=== PATIENT | male | born 1985 | race Caucasian/White ===

== ENCOUNTER → 2017-09-05 | Outpatient (CLI) | payer OTHER ==
[2017-09-05 11:50] LABS: ALT 48 U/L (21-72); AST 28 U/L (17-59); Albumin 4.6 g/dL (3.5-5.0); Alkaline Phosphatase 65 U/L (38-126); Anion Gap 12 mmol/L; Blood Urea Nitrogen 12 mg/dL (9-20); Calcium 10.3 mg/dL (8.4-10.2); Carbon Dioxide 29 mmol/L (22-30); Chloride 103 mmol/L (98-107); Glucose 94 mg/dL (74-99); Potassium 4.4 mmol/L (3.5-5.1); Sodium 144 mmol/L (137-145); Total Bilirubin 0.3 mg/dL (0.2-1.3); Total Protein 8.3 g/dL (6.3-8.2)
[2017-09-05 18:11] LABS: HIV AB P24 Non-Reactive (Non-Reactive); HIV P24 AG Non-Reactive (Non-Reactive)
[2017-09-05 18:31] LABS: Hepatitis A Antibody IgM Non-Reactive (Non-Reactive); Hepatitis B Core IgM Non-Reactive (Non-Reactive)
== END | disposition home or self-care (01) ==
LOC: LABWHC1 10:53
PROVIDERS: ATTEND Family Medicine
DX: Z20.5 Contact with and (suspected) exposure to viral hepatitis (principal); Z20.6 Contact with and (suspected) exposure to human immunodeficiency virus [HIV]; Z79.899 Other long term (current) drug therapy
CPT/HCPCS: 36415; 80053; 80074; 87390

== ENCOUNTER 2017-10-27 09:53 | Emergency (ER) | payer OTHER ==
[2017-10-27 09:56] VITALS: BP 160/100; PULSE 78; RESP 18; TEMP 98.1
--- NOTE | 2017-10-27 10:12 | ED ---
Overdose HPI - General Chief Complaint: Overdose Stated Complaint: Overdose Time Seen by Provider: 10/27/17 09:53 Source: patient, EMS, RN notes reviewed Mode of arrival: EMS Limitations: no limitations - History of Present Illness Initial Comments: This is a 32-year-old male presents emergency Department via EMS and police for heroin overdose. Patient was given 0.04 mg of Narcan. Patient has no point at this time. Patient is awake alert and orientated 3. Patient has a long- standing history of marijuana abuse. Patient explained to go to rehab next week. Patient is not suicidal or homicidal. He denies any physical complaints. - Related Data Home Medications Medication Instructions Recorded Confirmed No Known Home Medications [No 11/11/13 10/09/15 Known Home Medications] Allergies Allergy/AdvReac Type Severity Reaction Status Date / Time No Known Allergies Allergy Verified 10/27/17 09:56 Review of Systems ROS Statement: Those systems with pertinent positive or pertinent negative responses have been documented in the HPI. ROS Other: All systems not noted in ROS Statement are negative. Past Medical History Past Medical History: Sleep Apnea/CPAP/BIPAP History of Any Multi-Drug Resistant Organisms: None Reported Past Surgical History: Hernia Repair, Orthopedic Surgery Additional Past Surgical History / Comment(s): Left leg sx numerous r shoulder Past Psychological History: No Psychological Hx Reported Smoking Status: Current every day smoker Past Alcohol Use History: Occasional Past Drug Use History: Heroin, Marijuana General Exam Limitations: no limitations General appearance: alert, in no apparent distress Head exam: Present: atraumatic, normocephalic, normal inspection Eye exam: Present: normal appearance, PERRL, EOMI. Absent: scleral icterus, conjunctival injection, periorbital swelling ENT exam: Present: normal exam, normal oropharynx, mucous membranes moist Neck exam: Present: normal inspection, full ROM. Absent: tenderness, meningismus, lymphadenopathy Respiratory exam: Present: normal lung sounds bilaterally. Absent: respiratory distress, wheezes, rales, rhonchi, stridor Cardiovascular Exam: Present: regular rate, normal rhythm, normal heart sounds. Absent: systolic murmur, diastolic murmur, rubs, gallop, clicks Neurological exam: Present: alert, oriented X3, CN II-XII intact, normal gait, reflexes normal. Absent: motor sensory deficit Psychiatric exam: Present: normal affect, normal mood. Absent: homicidal ideation, suicidal ideation Skin exam: Present: warm, dry, intact, normal color. Absent: rash Course Vital Signs 10/27/17 09:54 Temperature 98.1 F Pulse Rate 78 Respiratory 18 Rate Blood Pressure 160/100 O2 Sat by Pulse 99 Oximetry Medical Decision Making - Medical Decision Making 32-year-old male presents from for heroin overdose. Patient was given 0.4 mg Narcan. Patient been awake alert and orientated for over an hour. Patient has no complaints. Patient is not suicidal or homicidal. Patient is not in police custody. Patient will be discharged. Disposition Clinical Impression: Heroin overdose Disposition: ADMITTED IP TO THIS HOSP Condition: Stable Instructions: Narcotic Abuse (ED) Additional Instructions: Please return to the Emergency Department if symptoms worsen or any other concerns. Is patient prescribed a controlled substance at d/c from ED?: No Referrals: None,Stated [Primary Care Provider] - 1-2 days Time of Disposition: 10:12
== END 2017-10-27 10:18 | disposition other institution (70) ==
LOC: EC 09:53
DX: T40.1X1A Poisoning by heroin, accidental (unintentional), initial encounter (principal); F17.200 Nicotine dependence, unspecified, uncomplicated; G47.30 Sleep apnea, unspecified; Z99.89 Dependence on other enabling machines and devices
CPT/HCPCS: 99284

== ENCOUNTER 2017-11-18 20:39 | Emergency (ER) | payer OTHER ==
[2017-11-18 20:55] VITALS: RESP 18; TEMP 98.1
--- NOTE | 2017-11-18 21:01 | ED ---
Overdose HPI - General Chief Complaint: Overdose Stated Complaint: Overdose Time Seen by Provider: 11/18/17 20:47 Source: EMS, RN notes reviewed, old records reviewed Mode of arrival: EMS Limitations: no limitations - History of Present Illness Initial Comments: 32-year-old male presents after heroin overdose. Patient reports that he was unconscious and EMS was called. Apparently Patient was aroused before EMS was there. No Narcan administered. He states that he feels well this time. Denies any suicidal thoughts. Patient reports that he has been to rehab facilities. Denies actively searching for treatment. - Related Data Home Medications Medication Instructions Recorded Confirmed Buprenorphine HCl/Naloxone HCl 1 each SL BID 11/18/17 11/18/17 [Suboxone 8 mg-2 mg Sl Film] Lisinopril [Zestril] 10 mg PO DAILY 11/18/17 11/18/17 Allergies Allergy/AdvReac Type Severity Reaction Status Date / Time No Known Allergies Allergy Verified 11/18/17 20:55 Review of Systems ROS Statement: Those systems with pertinent positive or pertinent negative responses have been documented in the HPI. ROS Other: All systems not noted in ROS Statement are negative. Past Medical History Past Medical History: Hypertension, Sleep Apnea/CPAP/BIPAP Additional Past Medical History / Comment(s): addiction History of Any Multi-Drug Resistant Organisms: None Reported Past Surgical History: Hernia Repair, Orthopedic Surgery Additional Past Surgical History / Comment(s): Left leg sx numerous r shoulder , Past Psychological History: No Psychological Hx Reported, Depression Smoking Status: Current every day smoker Past Alcohol Use History: Occasional Past Drug Use History: Heroin, Marijuana General Exam - General Exam Comments Initial Comments: 32-year-old male. Alert and oriented. No acute distress. Limitations: no limitations General appearance: alert, in no apparent distress Head exam: Present: atraumatic, normocephalic, normal inspection Eye exam: Present: normal appearance, PERRL, EOMI. Absent: scleral icterus, conjunctival injection, periorbital swelling ENT exam: Present: normal exam, mucous membranes moist Neck exam: Present: normal inspection. Absent: tenderness, meningismus, lymphadenopathy Respiratory exam: Present: normal lung sounds bilaterally. Absent: respiratory distress, wheezes, rales, rhonchi, stridor Cardiovascular Exam: Present: regular rate, normal rhythm, normal heart sounds. Absent: systolic murmur, diastolic murmur, rubs, gallop, clicks GI/Abdominal exam: Present: soft, normal bowel sounds. Absent: distended, tenderness, guarding, rebound, rigid Extremities exam: Present: normal inspection, full ROM, normal capillary refill , other (Left leg has significant scarring from history of surgeries.). Absent : tenderness, pedal edema, joint swelling, calf tenderness Back exam: Present: normal inspection Neurological exam: Present: alert, oriented X3, CN II-XII intact Psychiatric exam: Present: normal affect, normal mood Skin exam: Present: warm, dry, intact, normal color. Absent: rash Course Vital Signs 11/18/17 20:49 Temperature 98.1 F Pulse Rate 77 Respiratory 18 Rate Blood Pressure 187/89 O2 Sat by Pulse 96 Oximetry - Reevaluation(s) Reevaluation #1: 11/18/17 21:51 Patient was reevaluated at this time alert and oriented. Steady gait. Patient will be discharged at this time. Medical Decision Making - Medical Decision Making 32-year-old male presents emergency Department after heroin overdose. Denies suicidal ideations. He denies any complaints at this time. He states that he feels well. Patient arrived alert and oriented. Narcan was not administered. Patient was monitored in the emergency department and has no evidence of somnolence or decreased respiratory drive. He is alert and oriented. I will give Patient information for rehab facilities. Discussed return parameters. Patient's history plan will comply. Return parameters were discussed. Is also noted the Patient was hypertensive. He states that he does takes medication. Does not recall taking his medication today. Disposition Clinical Impression: Heroin overdose, Hypertension Disposition: HOME SELF-CARE Condition: Good Instructions: Narcotic Abuse (ED) Additional Instructions: Patient advised to follow-up with outpatient rehab facilities. Return to emergency department if any alarming signs or symptoms occur. Is patient prescribed a controlled substance at d/c from ED?: No When asked, does pt state using other controlled substances?: No If prescribed controlled substance>3 days was MAPS reviewed?: No If opioid is for acute pain is fill amount 7 days or less?: No If Rx opioid, was Start Talking consent form obtained?: No Referrals: Carter Serrano MD [Primary Care Provider] - 1-2 days Time of Disposition: 21:53
[2017-11-18] MEDS ORDERED: cloNIDine HCL 0.1 MG TAB PO STA (21:53)
[2017-11-18 21:55] VITALS: BP 115/78; PULSE 61
== END 2017-11-18 22:03 | disposition home or self-care (01) ==
LOC: EC 20:39
DX: T40.1X1A Poisoning by heroin, accidental (unintentional), initial encounter (principal); I10 Essential (primary) hypertension; F17.200 Nicotine dependence, unspecified, uncomplicated; G47.30 Sleep apnea, unspecified; Z99.89 Dependence on other enabling machines and devices; Z79.891 Long term (current) use of opiate analgesic; Z79.899 Other long term (current) drug therapy
CPT/HCPCS: 99284

== ENCOUNTER 2018-04-17 16:04 | Emergency (ER) | payer OTHER ==
[2018-04-17 16:24] VITALS: RESP 12; TEMP 98.5
--- NOTE | 2018-04-17 16:34 | ED ---
General Adult HPI - General Chief complaint: Overdose Stated complaint: POSS OVERDOSE Source: EMS Mode of arrival: EMS Limitations: altered mental status - History of Present Illness Initial comments: Dictation was produced using [employer] dictation software. please excuse any grammatical, word or spelling errors. Chief Complaint: 32-year-old male past medical history of illicit drug abuse, IV drug abuse presents with altered mental status. History of Present Illness: Patient reports that he was shooting heroin today. According to EMS he was witnessed by his neighbors to be injecting drugs into his upper extremity. EMS was called patient is brought to the emergency department. No Narcan was given to the patient en route. Patient stable vital signs per EMS. Patient goes on to report that he took a couple benzodiazepine pills. Patient denies any other complaints at this time. History is limited secondary to mental status. The ROS documented in this emergency department record has been reviewed and confirmed by me. Those systems with pertinent positive or negative responses have been documented in the HPI. All other systems are other negative and/or noncontributory. - Related Data Home Medications Medication Instructions Recorded Confirmed Buprenorphine HCl/Naloxone HCl 1 film SL BID 11/18/17 04/17/18 [Suboxone 8 mg-2 mg Sl Film] Allergies Allergy/AdvReac Type Severity Reaction Status Date / Time No Known Allergies Allergy Verified 04/17/18 16:42 Review of Systems ROS Statement: Those systems with pertinent positive or pertinent negative responses have been documented in the HPI. ROS Other: All systems not noted in ROS Statement are negative. Past Medical History Past Medical History: Hypertension, Sleep Apnea/CPAP/BIPAP Additional Past Medical History / Comment(s): addiction History of Any Multi-Drug Resistant Organisms: None Reported Past Surgical History: Hernia Repair, Orthopedic Surgery Additional Past Surgical History / Comment(s): Left leg sx numerous r shoulder , Past Psychological History: No Psychological Hx Reported, Depression Smoking Status: Current every day smoker Past Alcohol Use History: Occasional Past Drug Use History: Heroin, Marijuana General Exam - General Exam Comments Initial Comments: PHYSICAL EXAM: General Impression: Alert and oriented x3, not in acute distress, sleepy HEENT: Normocephalic atraumatic, extra-ocular movements intact, pupils equal and reactive to light bilaterally, mucous membranes moist. Cardiovascular: Heart regular rate and rhythm, S1&S2 audible, no murmurs, rubs or gallops Chest: Lungs clear to auscultation bilaterally, no rhonchi, no wheeze, no rales Abdomen: Bowel sounds present, abdomen soft, non-tender, non-distended, no organomegaly Musculoskeletal: Pulses present and equal in all extremities, no peripheral edema Motor: Power 5/5 bilaterally, no focal deficits noted Neurological: CN II-XII grossly intact, no focal motor or sensory deficits noted Skin: Intact with no visualized rashes Limitations: altered mental status Course Vital Signs 04/17/18 04/17/18 04/17/18 16:16 16:30 16:56 Temperature 98.5 F Pulse Rate 73 64 62 Respiratory 12 11 L 12 Rate Blood Pressure 133/82 133/82 126/86 O2 Sat by Pulse 97 87 L 97 Oximetry 04/17/18 04/17/18 17:00 17:30 Temperature Pulse Rate 60 58 L Respiratory 13 12 Rate Blood Pressure 126/86 121/81 O2 Sat by Pulse 97 97 Oximetry Medical Decision Making - Medical Decision Making ED course: 32-year-old male presents after overdose of opiates and benzodiazepines. Vital signs upon arrival are within acceptable limits. Patient denies any suicidal or homicidal ideation. No Narcan indicated at this time given that patient is breathing at a normal rate and not hypoxic. Clinical presentation more consistent with benzodiazepine toxicity versus opiate toxicity.EKG interpretation: Ventricular rate 63, normal sinus rhythm,. Interval 124, care is 80, QTc 45. No CA prolongation, no QTC prolongation, no ST or T-wave changes noted. . Overall, this EKG is unremarkable. Patient was observed in the emergency department for several hours. Patient was pending clinical sobriety. After several hours patient was not altered. He is awake alert and oriented. Ambulatory without complications. Patient continues to deny suicidal or homicidal ideation. Patient clear for discharge. Disposition Clinical Impression: Drug overdose Disposition: HOME SELF-CARE Condition: Good Is patient prescribed a controlled substance at d/c from ED?: No Referrals: Carter Serrano MD [Primary Care Provider] - 1-2 days Time of Disposition: 18:49
[2018-04-17 18:01] VITALS: BP 121/81; PULSE 58
== END 2018-04-17 18:59 | disposition home or self-care (01) ==
LOC: EC 16:04
DX: T40.1X1A Poisoning by heroin, accidental (unintentional), initial encounter (principal); T42.4X1A Poisoning by benzodiazepines, accidental (unintentional), initial encounter; F17.200 Nicotine dependence, unspecified, uncomplicated; G47.30 Sleep apnea, unspecified; Z99.89 Dependence on other enabling machines and devices; Z79.891 Long term (current) use of opiate analgesic
CPT/HCPCS: 93005; 99284

== ENCOUNTER 2018-04-27 01:41 | Emergency (ER) | payer OTHER ==
[2018-04-27] MEDS ORDERED: NALOXONE 0.4 MG/ML 10 ML VIAL IVP STA (02:00)
--- NOTE | 2018-04-27 03:08 | ED ---
Overdose HPI - General Chief Complaint: Overdose Stated Complaint: overdose Time Seen by Provider: 04/27/18 01:50 EST Source: patient Mode of arrival: ambulatory Limitations: altered mental status - History of Present Illness Initial Comments: Patient is a 32-year-old man brought to emergency department by friends who stated that he had been using heroin and appeared to have overdosed. He was unresponsive. Patient not able to give any history. Complaint: accidental overdose -: minutes(s) How Overdose Was Discovered: family/friend present at time Context: Accidental Overdose: wanted to get high Treatments Prior to Arrival: none - Related Data Home Medications Medication Instructions Recorded Confirmed Buprenorphine HCl/Naloxone HCl 1 film SL BID 11/18/17 04/17/18 [Suboxone 8 mg-2 mg Sl Film] Allergies Allergy/AdvReac Type Severity Reaction Status Date / Time No Known Allergies Allergy Verified 04/17/18 16:42 Review of Systems ROS Statement: Those systems with pertinent positive or pertinent negative responses have been documented in the HPI. ROS Other: All systems not noted in ROS Statement are negative. Limitations: ROS unobtainable due to patients medical condition Past Medical History Past Medical History: Hypertension, Sleep Apnea/CPAP/BIPAP Additional Past Medical History / Comment(s): addiction History of Any Multi-Drug Resistant Organisms: None Reported Past Surgical History: Hernia Repair, Orthopedic Surgery Additional Past Surgical History / Comment(s): Left leg sx numerous r shoulder , Past Psychological History: Depression Smoking Status: Current every day smoker Past Alcohol Use History: Occasional Past Drug Use History: Heroin, Marijuana General Exam Limitations: altered mental status General appearance: obtunded Head exam: Present: atraumatic, normocephalic Pupils: Present: miosis Respiratory exam: Present: rhonchi, other (The patient only having 4-6 respiratory effort per minute.) Cardiovascular Exam: Present: regular rate, normal rhythm, normal heart sounds. Absent: systolic murmur, diastolic murmur, rubs, gallop GI/Abdominal exam: Present: soft. Absent: tenderness Extremities exam: Present: normal inspection, normal capillary refill. Absent: pedal edema Back exam: Present: normal inspection Neurological exam: Present: altered Skin exam: Present: warm, dry, intact, cyanosis. Absent: rash Course Vital Signs 04/27/18 04/27/18 04/27/18 01:48 EST 02:00 04:11 Temperature 98.1 F Pulse Rate 69 56 L Respiratory 14 6 L 15 Rate Blood Pressure 153/101 115/77 O2 Sat by Pulse 100 96 Oximetry Medical Decision Making - Medical Decision Making Patient's a 32-year-old man brought to be evaluated for suspected overdose. The patient is brought directly to the resuscitation room. The clinical exam is consistent with opioid overdose. The patient was ventilated using bag valve mask ventilation. Patient placed on monitors. I did administer a dose of Narcan intranasal, which was 0.4 mg. And did not wake the patient. Concurrently IV was being started, and when this was in place patient given full dose of Narcan. He did rapidly become alert and responsive. Patient did subsequently acknowledge heroin use. Disposition Clinical Impression: Drug overdose Disposition: HOME SELF-CARE Condition: Good Instructions: Adult Overdose (ED), Narcotic Use Disorder (ED) Is patient prescribed a controlled substance at d/c from ED?: No Referrals: None,Stated [Primary Care Provider] - 1-2 days
[2018-04-27 06:30] VITALS: BP 123/70; PULSE 72; RESP 16; TEMP 97.7
== END 2018-04-27 06:29 | disposition home or self-care (01) ==
LOC: EC 01:41
DX: T40.1X1A Poisoning by heroin, accidental (unintentional), initial encounter (principal); G47.30 Sleep apnea, unspecified; F17.200 Nicotine dependence, unspecified, uncomplicated; Z79.899 Other long term (current) drug therapy
CPT/HCPCS: 99283; 96374; J2310

== ENCOUNTER 2018-04-27 23:16 | Emergency (ER) | payer OTHER ==
[2018-04-27 23:27] VITALS: TEMP 98.5
[2018-04-27] MEDS ORDERED: NALOXONE 0.4 MG/ML 10 ML VIAL IVP STA (23:30)
--- NOTE | 2018-04-27 23:43 | ED ---
Overdose HPI - General Source: patient, police, RN notes reviewed, old records reviewed Mode of arrival: wheelchair Limitations: altered mental status - History of Present Illness MD Complaint: accidental overdose, other <Genaro Combs - Last Filed: 04/28/18 00:05> <Andrez Cesar - Last Filed: 05/03/18 07:13> - General Chief Complaint: Overdose Stated Complaint: overdose Time Seen by Provider: 04/27/18 23:16 - History of Present Illness Initial Comments: This is a 32-year-old male with a known history of drug abuse and overdoses who was actually here last night with an overdose who is back tonight he apparently walked in with friends who brought him to the hospital after drinking alcohol use is some unknown medication. Is very lethargic upon arrival and he saturating in the triage good. He was brought back to room 5 immediately for evaluation patient has been waxing and waning with respect to his mental status. He is not admitting to taking any medication or drugs does admit to drinking alcohol. No trauma is reported. (Genaro Combs) - Related Data Home Medications Medication Instructions Recorded Confirmed Buprenorphine HCl/Naloxone HCl 1 film SL BID 11/18/17 04/17/18 [Suboxone 8 mg-2 mg Sl Film] Allergies Allergy/AdvReac Type Severity Reaction Status Date / Time No Known Allergies Allergy Verified 04/27/18 23:27 Review of Systems ROS Other: All systems not noted in ROS Statement are negative. Limitations: ROS unobtainable due to patients medical condition <Genaro Combs - Last Filed: 04/28/18 00:05> ROS Other: All systems not noted in ROS Statement are negative. <Andrez Cesar - Last Filed: 05/03/18 07:13> ROS Statement: Those systems with pertinent positive or pertinent negative responses have been documented in the HPI. Past Medical History Past Medical History: Hypertension, Sleep Apnea/CPAP/BIPAP Additional Past Medical History / Comment(s): addiction History of Any Multi-Drug Resistant Organisms: None Reported Past Surgical History: Hernia Repair, Orthopedic Surgery Additional Past Surgical History / Comment(s): Left leg sx numerous r shoulder , Past Psychological History: Depression Smoking Status: Current every day smoker Past Alcohol Use History: Occasional Past Drug Use History: Heroin, Marijuana <Genaro Combs - Last Filed: 04/28/18 00:05> General Exam Limitations: altered mental status General appearance: lethargic Head exam: Present: atraumatic, normocephalic, normal inspection Eye exam: Present: normal appearance, PERRL, EOMI. Absent: scleral icterus, conjunctival injection, periorbital swelling ENT exam: Present: normal exam, mucous membranes moist Neck exam: Present: normal inspection. Absent: tenderness, meningismus, lymphadenopathy Respiratory exam: Present: normal lung sounds bilaterally. Absent: respiratory distress, wheezes, rales, rhonchi, stridor Cardiovascular Exam: Present: normal rhythm, tachycardia GI/Abdominal exam: Present: soft, normal bowel sounds. Absent: distended, tenderness, guarding, rebound, rigid Extremities exam: Present: full ROM, normal capillary refill, other (The patient is left forearm demonstrates evidence of hematoma forearm.). Absent: tenderness Back exam: Present: normal inspection Neurological exam: Present: altered, CN II-XII intact Psychiatric exam: Present: flat affect Skin exam: Present: warm, dry, intact, normal color. Absent: rash <Genaro Combs - Last Filed: 04/28/18 00:05> <Andrez Cesar - Last Filed: 05/03/18 07:13> - General Exam Comments Initial Comments: This a well-developed sec appearing male who was lethargic with vacillating mental status. (Genaro Combs) Course <Genaro Combs - Last Filed: 04/28/18 00:05> <Andrez Cesar - Last Filed: 05/03/18 07:13> Vital Signs 04/27/18 04/27/18 04/28/18 23:18 23:37 00:10 Temperature 98.5 F Pulse Rate 120 H 82 Respiratory 12 12 18 Rate Blood Pressure 197/100 149/105 O2 Sat by Pulse 80 L 98 Oximetry 04/28/18 04/28/18 04/28/18 00:20 01:00 01:04 Temperature Pulse Rate 80 65 69 Respiratory 17 14 16 Rate Blood Pressure 149/105 141/102 136/98 O2 Sat by Pulse 98 97 97 Oximetry 04/28/18 04/28/18 04/28/18 02:00 03:00 04:00 Temperature Pulse Rate 60 57 L 55 L Respiratory 15 18 14 Rate Blood Pressure 136/94 138/92 126/84 O2 Sat by Pulse 95 95 96 Oximetry 04/28/18 05:00 Temperature Pulse Rate 53 L Respiratory 14 Rate Blood Pressure 128/84 O2 Sat by Pulse 95 Oximetry - Reevaluation(s) Reevaluation #1: 04/27/18 23:54 The patient did respond well to the 1 mg of Narcan was given IV. He did admit to the nursing staff that he took a Vicodin at approximately 20:30 p.m. tonight. (Genaro Combs) Reevaluation #2: 04/28/18 00:05 The patient remained remains awake alert oriented 3. Patient's care will be endorsed to Dr. Cesar at our shift change. Patient will be observed for a period of time. (Genaro Combs) Medical Decision Making <Genaro Combs - Last Filed: 04/28/18 00:05> - Lab Data Result diagrams: 04/27/18 23:37 <Andrez Cesar - Last Filed: 05/03/18 07:13> - Medical Decision Making The patient is observed hours in the emergency department and did remain arousable and alert. Discussed stopping use of narcotic drugs (Andrez Cesar) - Lab Data Lab Results 04/27/18 04/27/18 Range/Units 23:37 23:37 Sodium 144 (137-145) mmol/L Potassium 4.3 (3.5-5.1) mmol/L Chloride 106 (98-107) mmol/L Carbon Dioxide 25 (22-30) mmol/L Anion Gap 13 mmol/L BUN 21 H (9-20) mg/dL Creatinine 1.04 (0.66-1.25) mg/dL Est GFR (CKD-EPI)AfAm >90 (>60 ml/min/1.73 sqM) Est GFR (CKD-EPI)NonAf >90 (>60 ml/min/1.73 sqM) Glucose 83 (74-99) mg/dL Calcium 9.7 (8.4-10.2) mg/dL Total Bilirubin 0.5 (0.2-1.3) mg/dL AST 45 (17-59) U/L ALT 56 (21-72) U/L Alkaline Phosphatase 60 (38-126) U/L Total Protein 8.9 H (6.3-8.2) g/dL Albumin 4.7 (3.5-5.0) g/dL Acetaminophen <10.0 ug/mL Serum Alcohol <10 mg/dL Disposition <Genaro Combs - Last Filed: 04/28/18 00:05> Is patient prescribed a controlled substance at d/c from ED?: No <Andrez Cesar - Last Filed: 05/03/18 07:13> Clinical Impression: Drug overdose Disposition: HOME SELF-CARE Condition: Fair Instructions: Adult Overdose (ED), Opioid Use Disorder (ED) Referrals: None,Stated [Primary Care Provider] - 1-2 days
[2018-04-28 00:56] LABS: ALT 56 U/L (21-72); AST 45 U/L (17-59); Acetaminophen <10.0 ug/mL; Albumin 4.7 g/dL (3.5-5.0); Alkaline Phosphatase 60 U/L (38-126); Anion Gap 13 mmol/L; Blood Urea Nitrogen 21 mg/dL (9-20); Calcium 9.7 mg/dL (8.4-10.2); Carbon Dioxide 25 mmol/L (22-30); Chloride 106 mmol/L (98-107); Glucose 83 mg/dL (74-99); Potassium 4.3 mmol/L (3.5-5.1); Sodium 144 mmol/L (137-145); Total Bilirubin 0.5 mg/dL (0.2-1.3); Total Protein 8.9 g/dL (6.3-8.2)
[2018-04-28 04:29] VITALS: RESP 14
[2018-04-28 05:12] VITALS: BP 128/84; PULSE 53
== END 2018-04-28 05:35 | disposition home or self-care (01) ==
LOC: EC 23:16
DX: T50.901A Poisoning by unspecified drugs, medicaments and biological substances, accidental (unintentional), initial encounter (principal); G47.30 Sleep apnea, unspecified; F17.200 Nicotine dependence, unspecified, uncomplicated; Z79.899 Other long term (current) drug therapy
CPT/HCPCS: 99284 ×2; 96374; 99283; 36415; 80053; 83520; G0480; J2310; 80320

== ENCOUNTER 2018-09-05 00:56 | Emergency (ER) | payer OTHER ==
--- NOTE | 2018-09-05 02:14 | ED ---
Overdose HPI - General Chief Complaint: Overdose Stated Complaint: Overdose Time Seen by Provider: 09/05/18 01:04 Source: patient, family, police, RN notes reviewed Mode of arrival: ambulatory Limitations: altered mental status - History of Present Illness Initial Comments: 32-year-old male presented to the emergency department via EMS for overdose. Humberto zavala was found at local [place] station passed out. Patient is responsive and does admit to heroin use. Patient denies any homicidal or suicidal ideation. Denies any other illicit drug use at this time. Patient denies any chest pain, shortness breath, nausea or vomiting. - Related Data Home Medications Medication Instructions Recorded Confirmed Buprenorphine HCl/Naloxone HCl 1 film SL BID 11/18/17 04/17/18 [Suboxone 8 mg-2 mg Sl Film] Allergies Allergy/AdvReac Type Severity Reaction Status Date / Time No Known Allergies Allergy Verified 09/05/18 01:06 Review of Systems ROS Statement: Those systems with pertinent positive or pertinent negative responses have been documented in the HPI. ROS Other: All systems not noted in ROS Statement are negative. Past Medical History Past Medical History: Hypertension, Sleep Apnea/CPAP/BIPAP Additional Past Medical History / Comment(s): addiction History of Any Multi-Drug Resistant Organisms: None Reported Past Surgical History: Hernia Repair, Orthopedic Surgery Additional Past Surgical History / Comment(s): Left leg sx numerous r shoulder, Past Psychological History: Depression Smoking Status: Current every day smoker Past Alcohol Use History: Occasional Past Drug Use History: Heroin, Marijuana General Exam Limitations: altered mental status General appearance: alert, in no apparent distress, lethargic, other (Patient is drowsy) Head exam: Present: atraumatic, normocephalic, normal inspection Eye exam: Present: normal appearance, PERRL, EOMI. Absent: scleral icterus, conjunctival injection, periorbital swelling Pupils: Present: miosis ENT exam: Present: normal exam, normal oropharynx, mucous membranes moist Neck exam: Present: normal inspection, full ROM. Absent: tenderness, meningismus, lymphadenopathy Respiratory exam: Present: normal lung sounds bilaterally. Absent: respiratory distress, wheezes, rales, rhonchi, stridor Cardiovascular Exam: Present: regular rate, normal rhythm, normal heart sounds. Absent: systolic murmur, diastolic murmur, rubs, gallop, clicks GI/Abdominal exam: Present: soft, normal bowel sounds. Absent: distended, tenderness, guarding, rebound, rigid Neurological exam: Present: alert, oriented X3 Skin exam: Present: warm, dry, intact, normal color. Absent: rash Course Vital Signs 09/05/18 09/05/18 09/05/18 01:02 01:18 01:46 Temperature 97.8 F Pulse Rate 68 64 Respiratory 20 16 16 Rate Blood Pressure 116/80 113/78 116/79 O2 Sat by Pulse 96 97 97 Oximetry 09/05/18 02:15 Temperature Pulse Rate 72 Respiratory 16 Rate Blood Pressure 108/79 O2 Sat by Pulse 98 Oximetry Medical Decision Making - Medical Decision Making 32-year-old male presented for opiate overdose. Patient did use heroin. Patient was observed for 2 hours. Patient was awake alert and orientated. Patient was discharged to [facility] excepts responsibility . Patient will follow-up for rehab return for any worsening symptoms. Disposition Clinical Impression: Heroin overdose Disposition: HOME SELF-CARE Condition: Stable Instructions (If sedation given, give patient instructions): Opioid Use Disorder (ED) Additional Instructions: Please return to the Emergency Department if symptoms worsen or any other concerns. Is patient prescribed a controlled substance at d/c from ED?: No Referrals: Cherie Burr NPC [Primary Care Provider] - 1-2 days Time of Disposition: 03:06
[2018-09-05 03:15] VITALS: BP 110/75; PULSE 70; RESP 18; TEMP 98
== END 2018-09-05 03:25 | disposition home or self-care (01) ==
LOC: SUPCPDRO 00:56 → EC 00:56
DX: T40.1X1A Poisoning by heroin, accidental (unintentional), initial encounter (principal); G47.30 Sleep apnea, unspecified; Z99.89 Dependence on other enabling machines and devices; F17.200 Nicotine dependence, unspecified, uncomplicated; Z79.891 Long term (current) use of opiate analgesic
CPT/HCPCS: 93005; 99284

== ENCOUNTER 2018-09-11 21:52 | Emergency (ER) | payer OTHER ==
[2018-09-11 21:58] VITALS: BP 131/79; PULSE 73; RESP 18; TEMP 98.6
--- NOTE | 2018-09-11 22:22 | ED ---
Extremity Problem HPI - General Source: patient, RN notes reviewed, old records reviewed Mode of arrival: ambulatory Limitations: no limitations <Mimi Garrett - Last Filed: 09/11/18 23:35> <Hilary Swanson P - Last Filed: 09/12/18 03:04> - General Chief complaint: Extremity Problem,Nontraumatic Stated complaint: Infection Time Seen by Provider: 09/11/18 22:04 - History of Present Illness Initial comments: Patient is a 32-year-old male who presents emergency Department today with complaints of left lower leg infection. Patient reports that he's had extensive surgical repair after an open tib-fib fracture over 8 years ago. Patient states that he has had no fevers or chills. Patient reports that he woke up the past few days and complains of increased pain and redness and swelling over the ankle and foot. Patient states that he has had no new falls or trauma. (Mimi Garrett) - Related Data Home Medications Medication Instructions Recorded Confirmed Buprenorphine HCl/Naloxone HCl 1 film SL TID 11/18/17 09/11/18 [Suboxone 8 mg-2 mg Sl Film] Ibuprofen [Motrin] 800 mg PO TID PRN 09/11/18 09/11/18 Previous Rx's Medication Instructions Recorded Cephalexin [Keflex] 500 mg PO Q6HR #40 cap 09/11/18 Sulfamethox-Tmp 800-160Mg [Bactrim 2 tab PO Q12HR #40 tab 09/11/18 DS 800-160 mg] Allergies Allergy/AdvReac Type Severity Reaction Status Date / Time No Known Allergies Allergy Verified 09/11/18 22:11 Review of Systems ROS Other: All systems not noted in ROS Statement are negative. <Mimi Garrett - Last Filed: 09/11/18 23:35> ROS Other: All systems not noted in ROS Statement are negative. <Hilary Swanson - Last Filed: 09/12/18 03:04> ROS Statement: Those systems with pertinent positive or pertinent negative responses have been documented in the HPI. Past Medical History Past Medical History: Hypertension, Sleep Apnea/CPAP/BIPAP Additional Past Medical History / Comment(s): addiction History of Any Multi-Drug Resistant Organisms: MRSA Date of last positivie culture/infection: 2008 MDRO Source:: Left leg Past Surgical History: Hernia Repair, Orthopedic Surgery Additional Past Surgical History / Comment(s): Left leg sx numerous r shoulder, Past Psychological History: Depression Smoking Status: Current every day smoker Past Alcohol Use History: Occasional Past Drug Use History: Heroin, Marijuana, Opiates <Mimi Garrett - Last Filed: 09/11/18 23:35> General Exam Limitations: no limitations General appearance: alert, in no apparent distress Head exam: Present: atraumatic, normocephalic, normal inspection Eye exam: Present: normal appearance, PERRL, EOMI. Absent: scleral icterus, conjunctival injection, periorbital swelling ENT exam: Present: normal exam, mucous membranes moist Neck exam: Present: normal inspection. Absent: tenderness, meningismus, lymphadenopathy Respiratory exam: Present: normal lung sounds bilaterally. Absent: respiratory distress, wheezes, rales, rhonchi, stridor Cardiovascular Exam: Present: regular rate, normal rhythm, normal heart sounds. Absent: systolic murmur, diastolic murmur, rubs, gallop, clicks GI/Abdominal exam: Present: soft, normal bowel sounds. Absent: distended, tenderness, guarding, rebound, rigid Extremities exam: Present: normal inspection, full ROM, normal capillary refill. Absent: tenderness, pedal edema, joint swelling, calf tenderness Left Lower Leg exam: Present: full ROM, tenderness, swelling (patient has evidence of previous surgeries over lower leg with extensive scarring and deformity noted. ), erythema (over lower leg. ). Absent: normal inspection Ankle exam: Present: tenderness, swelling, erythema. Absent: normal inspection, full ROM Foot/Toe exam: Present: tenderness, swelling, erythema (over dorsum of foot. No skin abrasions. ). Absent: normal inspection, full ROM Gait: observed and normal Back exam: Present: normal inspection Neurological exam: Present: alert, oriented X3, CN II-XII intact Psychiatric exam: Present: normal affect Skin exam: Present: warm, dry, intact, normal color. Absent: rash <Mimi Garrett - Last Filed: 09/11/18 23:35> - General Exam Comments Initial Comments: This is a 32-year-old male. Alert and oriented. No distress. (Mimi Garrett) Course Vital Signs 09/11/18 21:54 Temperature 98.6 F Pulse Rate 73 Respiratory 18 Rate Blood Pressure 131/79 O2 Sat by Pulse 98 Oximetry Medical Decision Making - Lab Data Result diagrams: 09/11/18 22:25 09/11/18 22:25 - Radiology Data Radiology results: report reviewed <Mimi Garrett - Last Filed: 09/11/18 23:35> - Lab Data Result diagrams: 09/11/18 22:25 09/11/18 22:25 <Hilary Swanson - Last Filed: 09/12/18 03:04> - Medical Decision Making Patient is a 32-year-old male who presents emergency department today with left ankle redness and swelling for the past 2 days. He has had extensive surgical history over the lower leg with deformity and scar is noted. X-rays obtained did show evidence of previous fractures but no acute process. Patient has some cellulitic changes over the dorsum of the foot and ankle. Patient was started on IV fluids labwork obtained. He has full range of motion of the ankle. Dorsalis pedis pulse palpable and Patient has normal sensation. Patient was also examined by Dr. Swanson. Patient was given 2 g of IV. Patient's lab work does show evidence of leukocytosis. CRP is elevated at 65. I discussed at this time we can attempt outpatient treatment with oral antibiotics. Prescribed Keflex and Bactrim. I discussed the Patient needs to have prompt follow-up with Dr. Shankar his renewals specialist. Patient advised on strict return parameters with area of redness and swelling to his worse that he needs to re turn for reevaluation Asbill IV antibiotics. (Mimi Garrett) I personally saw and examined the patient. I reviewed and agree with the mid- level provider findings including all diagnostic interpretations and treatment plans as written unless otherwise stated. (Hilary Swanson) - Lab Data Lab Results 09/11/18 09/11/18 09/11/18 Range/Units 22:25 22:25 22:25 WBC 11.4 H (3.8-10.6) k/uL RBC 3.71 L (4.30-5.90) m/uL Hgb 11.7 L (13.0-17.5) gm/dL Hct 35.1 L (39.0-53.0) % MCV 94.7 (80.0-100.0) fL MCH 31.6 (25.0-35.0) pg MCHC 33.4 (31.0-37.0) g/dL RDW 12.5 (11.5-15.5) % Plt Count 246 (150-450) k/uL Neutrophils % 74 % Lymphocytes % 17 % Monocytes % 7 % Eosinophils % 1 % Basophils % 0 % Neutrophils # 8.4 H (1.3-7.7) k/uL Lymphocytes # 1.9 (1.0-4.8) k/uL Monocytes # 0.8 (0-1.0) k/uL Eosinophils # 0.1 (0-0.7) k/uL Basophils # 0.0 (0-0.2) k/uL ESR 61 H (0-15) mm/hr Sodium 138 (137-145) mmol/L Potassium 3.9 (3.5-5.1) mmol/L Chloride 100 (98-107) mmol/L Carbon Dioxide 29 (22-30) mmol/L Anion Gap 9 mmol/L BUN 11 (9-20) mg/dL Creatinine 0.58 L (0.66-1.25) mg/dL Est GFR (CKD-EPI)AfAm >90 (>60 ml/min/1.73 sqM) Est GFR (CKD-EPI)NonAf >90 (>60 ml/min/1.73 sqM) Glucose 114 H (74-99) mg/dL Plasma Lactic Acid Bon 1.9 (0.7-2.0) mmol/L Calcium 9.3 (8.4-10.2) mg/dL Total Bilirubin 0.8 (0.2-1.3) mg/dL AST 23 (17-59) U/L ALT 27 (21-72) U/L Alkaline Phosphatase 60 (38-126) U/L C-Reactive Protein 65.5 H (<10.0) mg/L Total Protein 7.5 (6.3-8.2) g/dL Albumin 3.8 (3.5-5.0) g/dL - Radiology Data Tib-fib shows old fracture deformity of the left mid tibia and fibula was drunk soft tissue. Soft tissue infection is not excluded. No definite acute fracture identified. Foot x-rays negative for any acute process. (Mimi Garrett) Disposition Is patient prescribed a controlled substance at d/c from ED?: No Time of Disposition: 23:40 <Mimi Garrett - Last Filed: 09/11/18 23:35> <Hilary Swanson - Last Filed: 09/12/18 03:04> Clinical Impression: Left leg cellulitis Disposition: HOME SELF-CARE Condition: Good Instructions (If sedation given, give patient instructions): Cellulitis (ED) Additional Instructions: Denies rest, ice, and elevate. The leg. Patient should take Motrin Tylenol for pain. Take antibiotics as prescribed. If the area of redness and swelling worsens within 24-48 hours return to the ER for reevaluation and possible IV antibiotic. Prescriptions: Sulfamethox-Tmp 800-160Mg [Bactrim DS 800-160 mg] 2 tab PO Q12HR #40 tab Cephalexin [Keflex] 500 mg PO Q6HR #40 cap Referrals: None,Stated [Primary Care Provider] - 1-2 days Corey Shankar MD [Medical Doctor] - 1-2 days
[2018-09-11] MEDS ORDERED: ceFAZolin IN SWFI 2 GM/20 ML SYRINGE IVP ONE (22:30)
[2018-09-11 22:40] LABS: Basophils % (A) 0 %; Eosinophils # (A) 0.1 k/uL (0-0.7); Eosinophils % (A) 1 %; HCT 35.1 % (39.0-53.0); HGB 11.7 gm/dL (13.0-17.5); Lymphocytes # (A) 1.9 k/uL (1.0-4.8); Lymphocytes % (A) 17 %; MCH 31.6 pg (25.0-35.0); MCHC 33.4 g/dL (31.0-37.0); MCV 94.7 fL (80.0-100.0); Mean Platelet Volume 6.8; Monocytes # (A) 0.8 k/uL (0-1.0); Monocytes % (A) 7 %; Neutrophils # (A) 8.4 k/uL (1.3-7.7); Neutrophils % (A) 74 %; Platelet Count 246 k/uL (150-450); RBC 3.71 m/uL (4.30-5.90); RDW 12.5 % (11.5-15.5); WBC 11.4 k/uL (3.8-10.6)
[2018-09-11 22:53] LABS: ALT 27 U/L (21-72); AST 23 U/L (17-59); Albumin 3.8 g/dL (3.5-5.0); Alkaline Phosphatase 60 U/L (38-126); Anion Gap 9 mmol/L; Blood Urea Nitrogen 11 mg/dL (9-20); C Reactive Protein 65.5 mg/L (<10.0); Calcium 9.3 mg/dL (8.4-10.2); Carbon Dioxide 29 mmol/L (22-30); Chloride 100 mmol/L (98-107); Glucose 114 mg/dL (74-99); Potassium 3.9 mmol/L (3.5-5.1); Sodium 138 mmol/L (137-145); Total Bilirubin 0.8 mg/dL (0.2-1.3); Total Protein 7.5 g/dL (6.3-8.2)
--- NOTE | 2018-09-11 23:16 | XR ---
EXAM: XR Left Tibia and Fibula, 2 Views CLINICAL HISTORY: ITS.REASON XR Reason: Pain TECHNIQUE: Frontal and lateral views of the left tibia and fibula. COMPARISON: None FINDINGS: Bones/joints: Old fracture deformities of the mid left tibia and fibula. Lucencies in the proximal left tibia are likely related to prior surgical hardware fixation. Nonspecific heterogeneous sclerosis and lucency in the distal left tibia. No definite acute fracture identified. Soft tissues: Soft tissue swelling in the left lower leg, most prominent about the fracture deformities. Surgical clips in the soft tissues at the level of the fracture deformities. IMPRESSION: Old fracture deformities of the left mid tibia and fibula with surrounding soft tissue swelling. Soft tissue infection is not excluded. No definite acute fracture identified.
--- NOTE | 2018-09-11 23:19 | XR ---
EXAM: XR Left Foot Complete, 3 or More Views CLINICAL HISTORY: ITS.REASON XR Reason: Pain TECHNIQUE: Frontal, lateral and oblique views of the left foot. COMPARISON: None FINDINGS: Bones/joints: No acute fracture or dislocation identified. Soft tissues: Soft tissue swelling in the visualized portions of the left lower leg. IMPRESSION: No acute abnormality identified.
[2018-09-11] MEDS ORDERED: SULFAMETH-TMP DS STARTER PACK 2 TAB BTL PO STA (23:42)
[2018-09-11] MEDS ORDERED: IBUPROFEN 600 MG STARTER PACK 4 TAB BTL PO STA (23:42)
[2018-09-12 00:10] LABS: Erythrocyte Sedimentation Rate 61 mm/hr (0-15)
== END 2018-09-11 23:59 | disposition home or self-care (01) ==
LOC: EC 21:52
DX: L03.116 Cellulitis of left lower limb (principal); F17.200 Nicotine dependence, unspecified, uncomplicated; G47.30 Sleep apnea, unspecified; Z99.89 Dependence on other enabling machines and devices; Z86.14 Personal history of Methicillin resistant Staphylococcus aureus infection; Z98.890 Other specified postprocedural states; Z87.81 Personal history of (healed) traumatic fracture; Z79.891 Long term (current) use of opiate analgesic; Z79.899 Other long term (current) drug therapy
CPT/HCPCS: 36415; 80053; 85652; 83605; 85025; 86140; 87040; 73590; 73630; 99284; 96374; J0690

== ENCOUNTER 2020-02-17 10:36 | Emergency (ER) | payer OTHER ==
[2020-02-17 10:49] VITALS: TEMP 98.2
[2020-02-17] MEDS ORDERED: ONDANSETRON 4 MG/2 ML VIAL IVP STA (10:58)
[2020-02-17] MEDS ORDERED: KETOROLAC 15 MG/ML 1 ML VIAL IVP STA (10:58)
[2020-02-17] MEDS ORDERED: SODIUM CHLORIDE 0.9% 1,000 ML IV STA ×2 (10:58)
--- NOTE | 2020-02-17 11:12 | ED ---
Abdominal Pain HPI - General Chief Complaint: Abdominal Pain Stated Complaint: abd pain/bowel problems Time Seen by Provider: 02/17/20 10:52 Source: patient, RN notes reviewed, old records reviewed Mode of arrival: ambulatory Limitations: no limitations - History of Present Illness Initial Comments: Patient is a 34-year-old male presents return today for concerns for constipation and abdominal fullness and relating to nausea and vomiting for the past 24 hours. He reports he did have a small bowel movement yesterday. He has extensive surgical history and has history of IV drug abuse. Patient reports that he took multiple nausea medication and pain medicine last night without any relief of his symptoms. Patient states that he's had removal of his left abdominal wall muscles for reconstruction of his left leg. He denies any other significant abdominal surgery. - Related Data Previous Rx's Medication Instructions Recorded Ondansetron Odt [Zofran Odt] 4 mg PO Q8HR PRN #12 tab 02/17/20 Pantoprazole [Protonix] 40 mg PO DAILY #14 tablet. 02/17/20 Allergies Allergy/AdvReac Type Severity Reaction Status Date / Time No Known Allergies Allergy Verified 02/17/20 12:34 Review of Systems ROS Statement: Those systems with pertinent positive or pertinent negative responses have been documented in the HPI. ROS Other: All systems not noted in ROS Statement are negative. Past Medical History Past Medical History: Hypertension, Sleep Apnea/CPAP/BIPAP Additional Past Medical History / Comment(s): addiction History of Any Multi-Drug Resistant Organisms: MRSA Date of last positivie culture/infection: 2008 MDRO Source:: Left leg Past Surgical History: Hernia Repair, Orthopedic Surgery Additional Past Surgical History / Comment(s): Left leg sx numerous r shoulder, Past Psychological History: Depression Smoking Status: Current every day smoker Past Alcohol Use History: Occasional Past Drug Use History: Marijuana, Opiates General Exam - General Exam Comments Initial Comments: 34-year-old male. No moderate discomfort. Limitations: no limitations General appearance: alert, in no apparent distress Head exam: Present: atraumatic, normocephalic, normal inspection Eye exam: Present: normal appearance, PERRL, EOMI. Absent: scleral icterus, conjunctival injection, periorbital swelling ENT exam: Present: normal exam, mucous membranes moist Neck exam: Present: normal inspection. Absent: tenderness, meningismus, lymphadenopathy Respiratory exam: Present: normal lung sounds bilaterally Cardiovascular Exam: Present: regular rate, normal rhythm, normal heart sounds. Absent: systolic murmur, diastolic murmur, rubs, gallop, clicks GI/Abdominal exam: Present: soft, normal bowel sounds. Absent: distended, tenderness, guarding, rebound, rigid Extremities exam: Present: normal inspection, full ROM, normal capillary refill. Absent: tenderness, pedal edema, joint swelling, calf tenderness Back exam: Present: normal inspection Neurological exam: Present: alert, oriented X3, CN II-XII intact Psychiatric exam: Present: normal affect, normal mood Skin exam: Present: warm, dry, intact, normal color. Absent: rash Course Vital Signs 02/17/20 02/17/20 10:46 13:24 Temperature 98.2 F Pulse Rate 66 57 L Respiratory 18 16 Rate Blood Pressure 118/88 151/98 O2 Sat by Pulse 100 100 Oximetry Medical Decision Making - Medical Decision Making 34 year old male presents today for CC of abdominal pain. Patient has been vomiting for the past day. Patient given IV fluids, labs show leukocytosis. HE had lower abdominal tenderness and reports constipation. Patient had cT scan abdomen and was normal without appendicitis or other findings. Patient feels better with zofran and tordol. Discussed DC with protonox and zofran. All questions answered and return parameters discussed. - Lab Data Result diagrams: 02/17/20 11:10 02/17/20 11:10 Lab Results 02/17/20 02/17/20 02/17/20 Range/Units 11:10 11:10 11:10 WBC 18.2 H (3.8-10.6) k/uL RBC 3.90 L (4.30-5.90) m/uL Hgb 12.2 L (13.0-17.5) gm/dL Hct 36.2 L (39.0-53.0) % MCV 92.9 (80.0-100.0) fL MCH 31.4 (25.0-35.0) pg MCHC 33.8 (31.0-37.0) g/dL RDW 13.4 (11.5-15.5) % Plt Count 338 (150-450) k/uL Neutrophils % 86 % Lymphocytes % 8 % Monocytes % 3 % Eosinophils % 2 % Basophils % 0 % Neutrophils # 15.7 H (1.3-7.7) k/uL Lymphocytes # 1.5 (1.0-4.8) k/uL Monocytes # 0.5 (0-1.0) k/uL Eosinophils # 0.3 (0-0.7) k/uL Basophils # 0.0 (0-0.2) k/uL PT (9.0-12.0) sec INR (<1.2) APTT (22.0-30.0) sec Sodium 133 L (137-145) mmol/L Potassium 4.5 (3.5-5.1) mmol/L Chloride 100 (98-107) mmol/L Carbon Dioxide 25 (22-30) mmol/L Anion Gap 8 mmol/L BUN 13 (9-20) mg/dL Creatinine 0.52 L (0.66-1.25) mg/dL Est GFR (CKD-EPI)AfAm >90 (>60 ml/min/1.73 sqM) Est GFR (CKD-EPI)NonAf >90 (>60 ml/min/1.73 sqM) Glucose 102 H (74-99) mg/dL Plasma Lactic Acid Bon 1.1 (0.7-2.0) mmol/L Calcium 9.6 (8.4-10.2) mg/dL Total Bilirubin 0.9 (0.2-1.3) mg/dL AST 29 (17-59) U/L ALT 24 (4-49) U/L Alkaline Phosphatase 63 (38-126) U/L Total Protein 8.5 H (6.3-8.2) g/dL Albumin 4.5 (3.5-5.0) g/dL Amylase 35 (30-110) U/L Lipase 11 L (23-300) U/L Urine Color Urine Appearance (Clear) Urine pH (5.0-8.0) Ur Specific [place] (1.001-1.035) Urine Protein (Negative) Urine Glucose (UA) (Negative) Urine Ketones (Negative) Urine Blood (Negative) Urine Nitrite (Negative) Urine Bilirubin (Negative) Urine Urobilinogen (<2.0) mg/dL Ur Leukocyte Esterase (Negative) 02/17/20 02/17/20 Range/Units 12:03 12:30 WBC (3.8-10.6) k/uL RBC (4.30-5.90) m/uL Hgb (13.0-17.5) gm/dL Hct (39.0-53.0) % MCV (80.0-100.0) fL MCH (25.0-35.0) pg MCHC (31.0-37.0) g/dL RDW (11.5-15.5) % Plt Count (150-450) k/uL Neutrophils % % Lymphocytes % % Monocytes % % Eosinophils % % Basophils % % Neutrophils # (1.3-7.7) k/uL Lymphocytes # (1.0-4.8) k/uL Monocytes # (0-1.0) k/uL Eosinophils # (0-0.7) k/uL Basophils # (0-0.2) k/uL PT 11.9 (9.0-12.0) sec INR 1.2 H (<1.2) APTT 21.8 L (22.0-30.0) sec Sodium (137-145) mmol/L Potassium (3.5-5.1) mmol/L Chloride (98-107) mmol/L Carbon Dioxide (22-30) mmol/L Anion Gap mmol/L BUN (9-20) mg/dL Creatinine (0.66-1.25) mg/dL Est GFR (CKD-EPI)AfAm (>60 ml/min/1.73 sqM) Est GFR (CKD-EPI)NonAf (>60 ml/min/1.73 sqM) Glucose (74-99) mg/dL Plasma Lactic Acid Bon (0.7-2.0) mmol/L Calcium (8.4-10.2) mg/dL Total Bilirubin (0.2-1.3) mg/dL AST (17-59) U/L ALT (4-49) U/L Alkaline Phosphatase (38-126) U/L Total Protein (6.3-8.2) g/dL Albumin (3.5-5.0) g/dL Amylase (30-110) U/L Lipase (23-300) U/L Urine Color Yellow Urine Appearance Clear (Clear) Urine pH 6.5 (5.0-8.0) Ur Specific [place] 1.020 (1.001-1.035) Urine Protein Negative (Negative) Urine Glucose (UA) Negative (Negative) Urine Ketones 1+ H (Negative) Urine Blood Negative (Negative) Urine Nitrite Negative (Negative) Urine Bilirubin Negative (Negative) Urine Urobilinogen <2.0 (<2.0) mg/dL Ur Leukocyte Esterase Negative (Negative) Disposition Clinical Impression: Nausea & vomiting, Gastroenteritis Disposition: HOME SELF-CARE Condition: Good Instructions (If sedation given, give patient instructions): Acute Nausea and Vomiting (ED) Additional Instructions: Patient advised to follow-up with your primary care physician. Patient sh ould've a clear liquid diet for next 1-2 days. Use the medications as prescribed. Return to emergency department if any alarming signs or symptoms occur. Prescriptions: Pantoprazole [Protonix] 40 mg PO DAILY #14 tablet. Ondansetron Odt [Zofran Odt] 4 mg PO Q8HR PRN #12 tab PRN Reason: Nausea Is patient prescribed a controlled substance at d/c from ED?: No Referrals: Bronson Negrete MD [Primary Care Provider] - 1-2 days Time of Disposition: 13:03
[2020-02-17 11:19] LABS: Basophils % (A) 0 %; Eosinophils # (A) 0.3 k/uL (0-0.7); Eosinophils % (A) 2 %; HCT 36.2 % (39.0-53.0); HGB 12.2 gm/dL (13.0-17.5); Lymphocytes # (A) 1.5 k/uL (1.0-4.8); Lymphocytes % (A) 8 %; MCH 31.4 pg (25.0-35.0); MCHC 33.8 g/dL (31.0-37.0); MCV 92.9 fL (80.0-100.0); Mean Platelet Volume 8.3; Monocytes # (A) 0.5 k/uL (0-1.0); Monocytes % (A) 3 %; Neutrophils # (A) 15.7 k/uL (1.3-7.7); Neutrophils % (A) 86 %; Platelet Count 338 k/uL (150-450); RDW 13.4 % (11.5-15.5); WBC 18.2 k/uL (3.8-10.6)
[2020-02-17 11:29] LABS: ALT 24 U/L (4-49); AST 29 U/L (17-59); African American GFR (CKD) >90 (>60 ml/min/1.73 sqM); Albumin 4.5 g/dL (3.5-5.0); Alkaline Phosphatase 63 U/L (38-126); Amylase 35 U/L (30-110); Anion Gap 8 mmol/L; Blood Urea Nitrogen 13 mg/dL (9-20); Calcium 9.6 mg/dL (8.4-10.2); Carbon Dioxide 25 mmol/L (22-30); Chloride 100 mmol/L (98-107); Glucose 102 mg/dL (74-99); Lipase 11 U/L (23-300); Non-African American GFR(CKD) >90 (>60 ml/min/1.73 sqM); Sodium 133 mmol/L (137-145); Total Bilirubin 0.9 mg/dL (0.2-1.3); Total Protein 8.5 g/dL (6.3-8.2)
--- NOTE | 2020-02-17 11:40 | XR ---
EXAMINATION TYPE: XR KUB DATE OF EXAM: 02/17/2020 11:26 AM CLINICAL HISTORY: Abdominal pain. Nausea and vomiting. TECHNIQUE: Upright images of the abdomen and pelvis were obtained COMPARISON: KUB 02/04/2012. FINDINGS: Left upper quadrant surgical clips redemonstrated. Scattered gas is seen in non-distended s mall bowel loops. Gas seen in non-distended colon. There is no visceromegaly, pneumoperitoneum, or ab normal calcification appreciated. The lung bases are clear. The osseous structures are intact. IMPRESSION: Nonspecific bowel gas pattern.
[2020-02-17 11:43] LABS: Potassium 4.5 mmol/L (3.5-5.1)
[2020-02-17 12:28] LABS: Appearance,Urine Clear (Clear); Bilirubin,Urine Negative (Negative); Blood,Urine Negative (Negative); Color,Urine Yellow; Glucose,Urine (UA) Negative (Negative); Ketones,Urine 1+ (Negative); Leukocyte Esterase,Urine Negative (Negative); Nitrite,Urine Negative (Negative); PH, Urine 6.5 (5.0-8.0); Protein,Urine Negative (Negative); Urobilinogen,Urine <2.0 mg/dL (<2.0)
--- NOTE | 2020-02-17 12:41 | CT ---
EXAMINATION TYPE: CT abdomen pelvis w con DATE OF EXAM: 02/17/2020 COMPARISON: None HISTORY: Lower abdominal pain, leukocytosis CT DLP: 615.1 mGycm CONTRAST: CT scan of the abdomen and pelvis is performed without Oral Contrast and with IV Contrast, patient in jected with 100 ml mL of Isovue 370. FINDINGS: LUNG BASES-: No visible nodule. No infiltrate. LIVER/GB: No calcified gallstones. No space occupying hepatic lesion. Biliary tree is of normal ca liber. PANCREAS: No inflammation. No distinct mass. SPLEEN: No splenic enlargement. No lesion seen. ADRENALS: No nodule. No thickening. KIDNEYS/BLADDER: No hydronephrosis. No nephrolithiasis. No distinct renal mass. Urinary bladder g rossly unremarkable. BOWEL: Normal appendix. Normal bowel caliber. No inflammation. GENITAL ORGANS: No gross abnormality. LYMPH NODES: No greater than 1cm abdominal or pelvic lymph nodes are appreciated. AORTA: No significant abnormality. OSSEOUS STRUCTURES: No significant abnormality is seen. OTHER: No significant additional abnormality is seen. IMPRESSION: 1. No distinct abnormality appreciated.
[2020-02-17] MEDS ORDERED: PANTOPRAZOLE 40 MG/10 ML VIAL IVP STA (13:01)
[2020-02-17 13:28] VITALS: BP 151/98; PULSE 57; RESP 16
[2020-02-17 13:36] LABS: INR 1.2 (<1.2); Partial Thromboplastin Time 21.8 sec (22.0-30.0); Prothrombin Time 11.9 sec (9.0-12.0)
== END 2020-02-17 13:28 | disposition home or self-care (01) ==
LOC: EC 10:36
DX: K52.9 Noninfective gastroenteritis and colitis, unspecified (principal); G47.33 Obstructive sleep apnea (adult) (pediatric); F17.200 Nicotine dependence, unspecified, uncomplicated; Z99.89 Dependence on other enabling machines and devices; Z86.14 Personal history of Methicillin resistant Staphylococcus aureus infection
CPT/HCPCS: 36415; 80053; 82150; 83605; 83690; 85025; 85610; 85730; 81003; 74018; 74177; 99285; 96374; 96375 ×2; 96361; J2405; J1885; C9113; Q9967

== ENCOUNTER 2020-08-11 12:16 | Emergency (ER) | payer OTHER ==
[2020-08-11 12:26] VITALS: TEMP 98.3
[2020-08-11 12:38] LABS: Glucose,Whole Blood 113 mg/dL (75-99)
[2020-08-11] MEDS ORDERED: SODIUM CHLORIDE 0.9% 2,000 ML IV ONE (12:40)
--- NOTE | 2020-08-11 12:57 | ED ---
General Adult HPI - General Chief complaint: Recheck/Abnormal Lab/Rx Stated complaint: Overdose Source: EMS Mode of arrival: EMS Limitations: no limitations - History of Present Illness Initial comments: Patient is a 34-year-old male who presents to the emergency department from [facility]. Patient was attempting to check himself into [facility] when it was noted that he was too sedated to answer questions. He reported that he snorted heroin at 10:30 AM, drank 1 alcoholic beverage and took an Ativan last night as a last attempt to get high before going to rehab. The patient was taken to [facility] and was falling asleep in the triage good. Due to his mentation they did transfer him here. Patient must be repetitively awakened by pain. He denies using any other illicit drug use. Patient denies any was attempting to harm himself. Remainder of the HPI is limited - Related Data Home Medications Medication Instructions Recorded Confirmed lisinopriL 40 mg PO DAILY 08/11/20 08/11/20 Allergies Allergy/AdvReac Type Severity Reaction Status Date / Time No Known Allergies Allergy Verified 08/11/20 13:56 Review of Systems ROS Statement: Those systems with pertinent positive or pertinent negative responses have been documented in the HPI. ROS Other: All systems not noted in ROS Statement are negative. Past Medical History Past Medical History: Hypertension, Sleep Apnea/CPAP/BIPAP Additional Past Medical History / Comment(s): addiction History of Any Multi-Drug Resistant Organisms: MRSA Date of last positivie culture/infection: 2008 MDRO Source:: Left leg Past Surgical History: Hernia Repair, Orthopedic Surgery Additional Past Surgical History / Comment(s): Left leg sx numerous r shoulder, Past Psychological History: Depression Smoking Status: Current every day smoker Past Alcohol Use History: Occasional Past Drug Use History: Heroin, Marijuana, Opiates General Exam Limitations: no limitations Course Vital Signs 08/11/20 08/11/20 08/11/20 12:20 13:11 13:41 Temperature 98.3 F Pulse Rate 58 L 60 Respiratory 18 16 14 Rate Blood Pressure 107/75 94/58 O2 Sat by Pulse 100 98 Oximetry 08/11/20 08/11/20 14:05 15:00 Temperature Pulse Rate 64 Respiratory 16 16 Rate Blood Pressure 100/54 O2 Sat by Pulse 100 Oximetry Medical Decision Making - Medical Decision Making Upon arrival patient was placed into room 1. A thorough history and physical exam was performed. Patient does need continuous stimulation to keep him awake and therefore he is given a 0.04 mg dose of Narcan. Patient is able to use the breathalyzer which is negative. He subsequently becomes difficult to arouse again and therefore a second dose of narcan - 0.2 mg is given. The patient does fully arouse. He is able to provide a urine sample. Urinalysis is positive for opiates, benzos, marijuana. Patient is observed in the emergency department for 3-1/2 hours. He is able to get up and ambulate around the emergency department. Requesting to leave at this time. We did call and discuss the case with [facility] who is willing to pick the patient up. Patient is informed that he will be discharged back to rehab for which he understood. Patient given written and verbal discharge instructions and discharged to [facility] - Lab Data Lab Results 08/11/20 08/11/20 Range/Units 12:37 14:17 POC Glucose (mg/dL) 113 H (75-99) mg/dL POC Glu Social Work Job Titles ID [employer] Ayoub Urine Opiates Screen Detected H (NotDetected) Ur Oxycodone Screen Not Detected (NotDetected) Urine Methadone Screen Not Detected (NotDetected) Ur Propoxyphene Screen Not Detected (NotDetected) Ur Barbiturates Screen Not Detected (NotDetected) U Tricyclic Antidepress Not Detected (NotDetected) Ur Phencyclidine Scrn Not Detected (NotDetected) Ur Amphetamines Screen Not Detected (NotDetected) U Methamphetamines Scrn Not Detected (NotDetected) U Benzodiazepines Scrn Detected H (NotDetected) Urine Cocaine Screen Not Detected (NotDetected) U Marijuana (THC) Screen Detected H (NotDetected) Disposition Clinical Impression: Heroin overdose Disposition: HOME SELF-CARE Condition: Stable Instructions (If sedation given, give patient instructions): Narcotic Use Disorder (ED) Additional Instructions: Stop using heroin. Follow-up with your doctor in 2-4 days. Return to the emergency room for any new or worsening symptoms Is patient prescribed a controlled substance at d/c from ED?: No Referrals: Bronson Negrete MD [Primary Care Provider] - 1-2 days Time of Disposition: 15:19
[2020-08-11] MEDS ORDERED: NALOXONE 0.4 MG/ML 1 ML VIAL IVP STA ×3 (13:37→14:59)
[2020-08-11 14:25] VITALS: BP 100/54; PULSE 64; RESP 16
[2020-08-11 14:45] LABS: Amphetamine Screen,Urine Not Detected (NotDetected); Barbiturate Screen,Urine Not Detected (NotDetected); Benzodiazepines Screen,Urine Detected (NotDetected); Cocaine Screen,Urine Not Detected (NotDetected); Methadone Screen, Urine Not Detected (NotDetected); Opiate Screen,Urine Detected (NotDetected); Oxycodone Screen, Urine Not Detected (NotDetected); Phencyclidine Screen,Urine Not Detected (NotDetected); Tricyclic Antidepressant,Urine Not Detected (NotDetected); Urn Cannabinoid Scrn Detected (NotDetected)
== END 2020-08-11 15:32 | disposition home or self-care (01) ==
LOC: EC 12:16
DX: T40.1X1A Poisoning by heroin, accidental (unintentional), initial encounter (principal); I10 Essential (primary) hypertension; G47.30 Sleep apnea, unspecified; F17.200 Nicotine dependence, unspecified, uncomplicated; Z79.899 Other long term (current) drug therapy; Z99.89 Dependence on other enabling machines and devices
CPT/HCPCS: 36415; 80306; 99284; 96374; 96376; 96361 ×3; J2310

== ENCOUNTER 2020-11-06 16:34 | Observation (INO) | payer OTHER ==
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
[2020-11-06 17:30] LABS: Basophils % (A) 0 %; Eosinophils # (A) 0.2 k/uL (0-0.7); Eosinophils % (A) 2 %; HCT 35.4 % (39.0-53.0); HGB 11.3 gm/dL (13.0-17.5); Lymphocytes # (A) 1.3 k/uL (1.0-4.8); Lymphocytes % (A) 14 %; MCH 29.6 pg (25.0-35.0); MCHC 31.9 g/dL (31.0-37.0); MCV 92.5 fL (80.0-100.0); Mean Platelet Volume 6.8; Monocytes # (A) 0.7 k/uL (0-1.0); Monocytes % (A) 7 %; Neutrophils # (A) 6.8 k/uL (1.3-7.7); Neutrophils % (A) 75 %; Platelet Count 351 k/uL (150-450); RBC 3.83 m/uL (4.30-5.90); RDW 13.7 % (11.5-15.5); WBC 9.1 k/uL (3.8-10.6)
[2020-11-06] MEDS: SODIUM CHLORIDE 0.9% 500 ML 500 ML IV SCH ×2 (17:35→19:25)
[2020-11-06 17:36] LABS: Partial Thromboplastin Time 24.5 sec (22.0-30.0); Prothrombin Time 10.5 sec (9.0-12.0)
--- NOTE | 2020-11-06 17:37 | XR ---
EXAMINATION TYPE: XR foot complete LT DATE OF EXAM: 11/06/2020 COMPARISON: 09/11/2018 HISTORY: Pain TECHNIQUE: 3 views FINDINGS: Metatarsals are intact. I see no fracture nor dislocation. Joint spaces are normal. There a re no erosions. IMPRESSION: Negative left foot exam. No adverse change.
[2020-11-06 17:39] LABS: Potassium 3.8 mmol/L (3.5-5.1)
[2020-11-06 17:42] LABS: ALT 19 U/L (4-49); AST 24 U/L (17-59); African American GFR (CKD) >90 (>60 ml/min/1.73 sqM); Albumin 4.2 g/dL (3.5-5.0); Alkaline Phosphatase 84 U/L (38-126); Anion Gap 9 mmol/L; Blood Urea Nitrogen 16 mg/dL (9-20); Calcium 9.6 mg/dL (8.4-10.2); Carbon Dioxide 27 mmol/L (22-30); Chloride 103 mmol/L (98-107); Glucose 108 mg/dL (74-99); Non-African American GFR(CKD) >90 (>60 ml/min/1.73 sqM); Sodium 139 mmol/L (137-145); Total Bilirubin 0.4 mg/dL (0.2-1.3); Total Protein 8.2 g/dL (6.3-8.2)
[2020-11-06 18:07] LABS: C Reactive Protein 13.5 mg/dL (<1.0)
[2020-11-06] MEDS ORDERED: VANCOMYCIN IV PER PHARMACY 1 EACH MISC MISCELLANE PRN (18:27)
[2020-11-06] MEDS ORDERED: LIDOCAINE 1% INJ 10MG/ML (20 ML MDV) SQ ONE (18:27)
[2020-11-06] MEDS ORDERED: NALOXONE 0.4 MG/ML 1 ML VIAL IV PRN (18:31)
[2020-11-06] MEDS ORDERED: VANCOMYCIN 1,500 MG in SODIUM CHLORIDE 0.9% 250 ML IVPB STA (18:33)
[2020-11-06] MEDS ORDERED: ACETAMINOPHEN TAB 325 MG TAB PO PRN (18:35)
[2020-11-06] MEDS ORDERED: SODIUM CHLORIDE 0.9% 1,000 ML IV STA (18:54)
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
[2020-11-07] MEDS: VANCOMYCIN 1,250 MG in SODIUM CHLORIDE 0.9% 250 ML IVPB SCH ×3 (02:44→19:16)
[2020-11-07] MEDS: MORPHINE SULFATE 2 MG/ML SYRINGE IVP PRN ×3 (04:36→16:13)
[2020-11-07 06:18] LABS: Basophils % (A) 0 %; Eosinophils # (A) 0.2 k/uL (0-0.7); Eosinophils % (A) 3 %; HCT 28.1 % (39.0-53.0); Lymphocytes # (A) 1.2 k/uL (1.0-4.8); Lymphocytes % (A) 19 %; MCH 31.7 pg (25.0-35.0); MCHC 33.9 g/dL (31.0-37.0); MCV 93.5 fL (80.0-100.0); Mean Platelet Volume 6.9; Monocytes # (A) 0.6 k/uL (0-1.0); Monocytes % (A) 9 %; Neutrophils # (A) 4.3 k/uL (1.3-7.7); Neutrophils % (A) 66 %; Platelet Count 232 k/uL (150-450); RDW 13.3 % (11.5-15.5); WBC 6.4 k/uL (3.8-10.6)
[2020-11-07 06:23] LABS: HGB 9.5 gm/dL (13.0-17.5)
[2020-11-07 06:38] LABS: African American GFR (CKD) >90 (>60 ml/min/1.73 sqM); Anion Gap 7 mmol/L; Blood Urea Nitrogen 11 mg/dL (9-20); Calcium 8.6 mg/dL (8.4-10.2); Carbon Dioxide 25 mmol/L (22-30); Chloride 105 mmol/L (98-107); Glucose 96 mg/dL (74-99); Non-African American GFR(CKD) >90 (>60 ml/min/1.73 sqM); Potassium 3.7 mmol/L (3.5-5.1); Sodium 137 mmol/L (137-145)
[2020-11-07 06:39] LABS: Amphetamine Screen,Urine Detected (NotDetected); Barbiturate Screen,Urine Not Detected (NotDetected); Benzodiazepines Screen,Urine Not Detected (NotDetected); Cocaine Screen,Urine Detected (NotDetected); Methadone Screen, Urine Not Detected (NotDetected); Opiate Screen,Urine Not Detected (NotDetected); Oxycodone Screen, Urine Not Detected (NotDetected); Phencyclidine Screen,Urine Not Detected (NotDetected); Tricyclic Antidepressant,Urine Not Detected (NotDetected); Urn Cannabinoid Scrn Detected (NotDetected)
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
[2020-11-07] MEDS: PIPERACILLIN-TAZOBACTAM 3.375 GM in SODIUM CHLORIDE 0.9% 100 ML IVPB SCH ×2 (10:56→18:05)
[2020-11-07] MEDS: NICOTINE 21MG/24HR PATCH TRANSDERM SCH (10:56)
--- NOTE | 2020-11-07 17:46 | P.CNOR ---
History of Present Illness - HPI Consult date: 11/07/20 History of present illness: This is a 35-year-old male who is admitted for left foot cellulitis. Patient is seen and evaluated at bedside today. Patient denies any injury and states that his swelling started on 11/02/2020. Patient states that his left foot was drained at bedside in the emergency room. Patient has a history of MRSA in fection. Patient's past medical history is significant for hypertension, sleep apnea and opiate abuse. Patient denies any numbness, weakness or tingling. Review of Systems See HPI. Past Medical History Past Medical History: Hypertension, Sleep Apnea/CPAP/BIPAP Additional Past Medical History / Comment(s): addiction History of Any Multi-Drug Resistant Organisms: MRSA Year Discovered:: 2008 MDRO Source:: Left leg Past Surgical History: Hernia Repair, Orthopedic Surgery Additional Past Surgical History / Comment(s): Left leg sx numerous r shoulder, Past Anesthesia/Blood Transfusion Reactions: No Reported Reaction Past Psychological History: Anxiety, Depression Smoking Status: Current every day smoker Past Alcohol Use History: Occasional Past Drug Use History: Heroin, Marijuana, Opiates - Past Family History FAMILY Family Medical History: No Reported History Medications and Allergies Home Medications Medication Instructions Recorded Confirmed Type No Known Home Medications 11/06/20 11/06/20 History Allergies Allergy/AdvReac Type Severity Reaction Status Date / Time No Known Allergies Allergy Verified 11/06/20 18:42 Physical Examination On exam patient is resting comfortably in bed in no acute distress. Patient is alert and oriented 3. There is swelling over the left foot along with mild erythema. Dorsalis pedis pulses 2+. There is an open wound over the posterior lateral aspect of the left foot. No active drainage. Calf is soft and nontender to palpation. Sensation intact. Neurovascular status and circulatory status are intact. Results X-rays of the left foot are negative for any fracture dislocation. - Labs Labs: Abnormal Lab Results - Last 24 Hours (Table) 11/06/20 11/07/20 11/07/20 Range/Units 17:20 05:34 06:06 RBC 3.00 L (4.30-5.90) m/uL Hgb 9.5 L D (13.0-17.5) gm/dL Hct 28.1 L (39.0-53.0) % Glucose 108 H (74-99) mg/dL C-Reactive Protein 13.5 H (<1.0) mg/dL Ur Amphetamines Screen Detected H (NotDetected) Urine Cocaine Screen Detected H (NotDetected) U Marijuana (THC) Screen Detected H (NotDetected) Microbiology - Last 24 Hours (Table) 11/06/20 18:54 Gram Stain - Preliminary Ankle - Left Wound Culture - Preliminary H & H 11/06/20 11/07/20 Range/Units 17:20 05:34 Hgb 11.3 L 9.5 L D (13.0-17.5) gm/dL Hct 35.4 L 28.1 L (39.0-53.0) % Coagulation 11/06/20 Range/Units 17:20 INR 1.0 (<1.2) Result Diagrams: 11/07/20 05:34 11/07/20 05:34 Assessment and Plan (1) Cellulitis Current Visit: Yes Status: Acute Code(s): L03.90 - CELLULITIS, UNSPECIFIED SNOMED Code(s): 063903390 Plan: 1. Recommend warm compresses and elevation of the left foot. 2. Continue IV antibiotics. 3. No surgical intervention planned. We will continue to follow.
[2020-11-07] MEDS ORDERED: VANCOMYCIN TROUGH DUE 1 EACH MISC MISCELLANE ONE (18:00)
[2020-11-08] MEDS: VANCOMYCIN 1,250 MG in SODIUM CHLORIDE 0.9% 250 ML IVPB SCH (02:15)
[2020-11-08] MEDS: PIPERACILLIN-TAZOBACTAM 3.375 GM in SODIUM CHLORIDE 0.9% 100 ML IVPB SCH (02:15)
[2020-11-08] MEDS: MORPHINE SULFATE 2 MG/ML SYRINGE IVP PRN ×4 (04:13→22:37)
[2020-11-08 06:48] LABS: Basophils % (A) 0 %; Eosinophils # (A) 0.2 k/uL (0-0.7); Eosinophils % (A) 3 %; HCT 32.1 % (39.0-53.0); Lymphocytes % (A) 23 %; MCH 31.5 pg (25.0-35.0); MCHC 34.2 g/dL (31.0-37.0); Mean Platelet Volume 6.9; Monocytes # (A) 0.4 k/uL (0-1.0); Monocytes % (A) 8 %; Neutrophils # (A) 2.7 k/uL (1.3-7.7); Neutrophils % (A) 62 %; Platelet Count 261 k/uL (150-450); RBC 3.49 m/uL (4.30-5.90); RDW 12.9 % (11.5-15.5); WBC 4.4 k/uL (3.8-10.6)
[2020-11-08] MEDS: NICOTINE 21MG/24HR PATCH TRANSDERM SCH (07:38)
[2020-11-08] MEDS: IBUPROFEN 400 MG TAB PO PRN (08:47)
[2020-11-08] MEDS: VANCOMYCIN 1,500 MG in SODIUM CHLORIDE 0.9% 250 ML IVPB SCH ×2 (10:50→19:14)
[2020-11-08] MEDS ORDERED: HYDROmorphone 1 MG/ML 1 ML SYRINGE IVP STA (12:24)
[2020-11-08 13:25] LABS: African American GFR (CKD) 139.7 (60.0-200.0); Albumin 3.6 g/dL (3.80-4.90); Albumin/Globulin Ratio 1.16 (1.60-3.17); Anion Gap 9.3 mmol/L (4.00-12.00); BUN/Creat Ratio 8.57 Ratio (12.00-20.00); Calcium 8.8 mg/dL (8.7-10.3); Carbon Dioxide 26.7 mmol/L (21.6-31.8); Globulin 3.1 g/dL (1.6-3.3); Non-African American GFR(CKD) 120.6 (60.0-200.0); Potassium 3.7 mmol/L (3.5-5.5); Total Bilirubin 0.3 mg/dL (0.3-1.2); Total Protein 6.7 g/dL (6.2-8.2)
--- NOTE | 2020-11-08 13:52 | P.PN ---
Subjective Progress Note Date: 11/08/20 This is a 35-year-old male is admitted for left foot cellulitis. Patient is seen and evaluated at bedside today with Dr. Luis Nesbitt. Patient reports that the foot continues to drain and his pain is well controlled. Patient denies any new complaints today. Objective - Vital Signs Vital signs: Vital Signs Temp 97 F L 11/08/20 13:00 Pulse 66 11/08/20 13:00 Resp 20 11/08/20 13:00 BP 156/89 11/08/20 13:00 Pulse Ox 98 11/08/20 13:00 Intake & Output 11/07/20 11/08/20 11/08/20 18:59 06:59 18:59 Intake Total 3980 1660 Balance 3980 1660 Intake: Intake, IV Titration 1100 700 Amount Piperacillin-Tazobactam 3 100 200 .375 gm In Sodium Chloride 0.9% 100 ml @ 25 mls/hr IVPB Q8H [facility] Rx#: [id number] Sodium Chloride 0.9% 1, 500 000 ml @ 130 mls/hr IV . Q7H42M [facility] Rx#:[id number] Vancomycin 1,250 mg In 500 500 Sodium Chloride 0.9% 250 ml @ 125 mls/hr IVPB Q8H ON LICENSE OF [facility] Rx#:[id number] Oral 2880 960 Other: Voiding Method Toilet # Voids 4 2 - Exam On exam patient is resting comfortably in bed in no acute distress. Patient is alert and oriented 3. There is mild swelling over the left foot along with mild erythema. Dorsalis pedis pulse is 2+. Dressing is removed, revealing an open wound over the posterior lateral aspect of the left foot with a moderate amount of purulent drainage on the bandage when removed. Calf is soft and nontender to palpation. Sensation intact. Neurovascular status and circulatory status are intact. - Labs CBC & Chem 7: 11/08/20 06:14 11/08/20 06:14 Labs: Abnormal Lab Results - Last 24 Hours (Table) 11/08/20 11/08/20 Range/Units 06:14 06:14 RBC 3.49 L (4.30-5.90) m/uL Hgb 11.0 L (13.0-17.5) gm/dL Hct 32.1 L (39.0-53.0) % BUN 6.0 L (9.0-27.0) mg/dL BUN/Creatinine Ratio 8.57 L (12.00-20.00) Ratio Glucose 130 H (70-110) mg/dL Albumin 3.60 L (3.80-4.90) g/dL Albumin/Globulin Ratio 1.16 L (1.60-3.17) g/dL Microbiology - Last 24 Hours (Table) 11/06/20 18:54 Gram Stain - Preliminary Ankle - Left Wound Culture - Preliminary Presumptive MRSA 11/06/20 17:27 Blood Culture - Preliminary Blood No Growth after 24 hours 11/06/20 17:20 Blood Culture - Preliminary Blood No Growth after 24 hours Assessment and Plan (1) Cellulitis Current Visit: Yes Status: Acute Code(s): L03.90 - CELLULITIS, UNSPECIFIED SNOMED Code(s): 418235979 Plan: 1. Recommend warm compresses and elevation of the left foot. 2. The patient's left foot is actively draining. Recommend continued treatment with IV antibiotics. 3. Patient is afebrile with a normal white blood cell count. 4. No surgical intervention planned. We will follow peripherally.
--- NOTE | 2020-11-08 18:06 | P.PN ---
<Souleymane Nash - Last Filed: 11/08/20 17:47> Subjective Progress Note Date: 11/08/20 Hospital course: Patient is a 35-year-old male with a past medical history of hypertension and opioid dependence. He presented to the hospital with pain and erythema surrounding his left ankle with history of MRSA cellulitis. Patient had I&D completed in the ED. Wound cultures obtained and currently showing preliminary results for MRSA. Blood cultures also obtained and preliminary results showing no growth after 24 hours. Pt currently on IV antibiotics with Vancomycin. Orthopedic surgery and Infectious Disease consulted. Physical exam: Patient seen and fully evaluated at the bedside this morning. Patient continues to have erythema, edema, and drainage coming from left lateral foot. Dressing currently in place. Patient reports continued pain waxing and waning. Patient denies having any numbness/tingling/weakness. Vital signs stable. Patient continues to have mildly elevated low-grade temperature 99.7F. He denies any other complaints or pains at this time. General: non toxic, no distress, appears at stated age Derm: warm, dry. Extensive scarring to left lower extremity secondary to previous reconstructive surgeries . Erythema, edema, and drainage coming from left lateral foot. Dressing currently in place. Head: atraumatic, normocephalic, symmetric Eyes: EOMI, no lid lag, anicteric sclera Mouth: no lip lesion, mucus membranes moist Cardiovascular: S1S2 reg, no murmur, positive posterior tibial pulse bilateral, Lungs: CTA bilateral, no rhonchi, no rales , no accessory muscle use Abdominal: soft, nontender to palpation, no guarding, no appreciable organomegaly Ext: no gross muscle atrophy, no edema, no contractures Neuro: CN II-XI grossly intact, no focal neuro deficits Psych: Alert, oriented, appropriate affect Plan of care: Cellulitis of left foot -IV antibiotics: Vancomycin pending culture sensitivity results. -Pain management and symptomatic care. -Wound cultures obtained and currently showing preliminary results for MRSA. -Blood cultures also obtained and preliminary results showing no growth after 24 hours. -Orthopedic surgery and Infectious Disease consulted. CODE STATUS: Full code DVT prophylaxis: SCDs Discussed with: Patient and RN Anticipated discharge date: 1-2 days pending need for possible repeat I&D Anticipated discharge place: Home A total of 45 minutes was spent on the care of this complex patient more than 50% of the time was spent in counseling and care coordination. Objective - Vital Signs Vital signs: Vital Signs Temp 99.7 F H 11/08/20 06:23 Pulse 68 11/08/20 05:00 Resp 18 11/08/20 05:00 BP 169/96 11/08/20 05:00 Pulse Ox 99 11/08/20 05:00 Intake & Output 11/07/20 11/08/20 11/08/20 18:59 06:59 18:59 Intake Total 3980 1660 Balance 3980 1660 Intake: Intake, IV Titration 1100 700 Amount Piperacillin-Tazobactam 3 100 200 .375 gm In Sodium Chloride 0.9% 100 ml @ 25 mls/hr IVPB Q8H [facility] Rx#: [id number] Sodium Chloride 0.9% 1, 500 000 ml @ 130 mls/hr IV . Q7H42M [facility] Rx#:[id number] Vancomycin 1,250 mg In 500 500 Sodium Chloride 0.9% 250 ml @ 125 mls/hr IVPB Q8H [facility] Rx#:[id number] Oral 2880 960 Other: Voiding Method Toilet # Voids 4 2 - Labs CBC & Chem 7: 11/08/20 06:14 11/08/20 06:14 Labs: Abnormal Lab Results - Last 24 Hours (Table) 11/08/20 Range/Units 06:14 RBC 3.49 L (4.30-5.90) m/uL Hgb 11.0 L (13.0-17.5) gm/dL Hct 32.1 L (39.0-53.0) % Microbiology - Last 24 Hours (Table) 11/06/20 18:54 Gram Stain - Preliminary Ankle - Left Wound Culture - Preliminary Presumptive MRSA 11/06/20 17:27 Blood Culture - Preliminary Blood No Growth after 24 hours 11/06/20 17:20 Blood Culture - Preliminary Blood No Growth after 24 hours <Becky Leonard - Last Filed: 11/08/20 18:47> Objective - Vital Signs Vital signs: Vital Signs Temp 97 F L 11/08/20 13:00 Pulse 66 11/08/20 13:00 Resp 20 11/08/20 13:00 BP 156/89 11/08/20 13:00 Pulse Ox 98 11/08/20 13:00 Intake & Output 11/07/20 11/08/20 11/08/20 18:59 06:59 18:59 Intake Total 3980 1660 250 Balance 3980 1660 250 Intake: Intake, IV Titration 1100 700 250 Amount Piperacillin-Tazobactam 3 100 200 .375 gm In Sodium Chloride 0.9% 100 ml @ 25 mls/hr IVPB Q8H [facility] Rx#: [id number] Sodium Chloride 0.9% 1, 500 000 ml @ 130 mls/hr IV . Q7H42M [facility] Rx#:[id number] Vancomycin 1,250 mg In 500 500 Sodium Chloride 0.9% 250 ml @ 125 mls/hr IVPB Q8H [facility] Rx#:[id number] Vancomycin 1,500 mg In 250 Sodium Chloride 0.9% 250 ml @ 125 mls/hr IVPB Q8H [facility] Rx#:[id number] Oral 2880 960 Other: Voiding Method Toilet # Voids 4 2 3 - Labs CBC & Chem 7: 11/08/20 06:14 11/08/20 06:14 Labs: Abnormal Lab Results - Last 24 Hours (Table) 11/08/20 11/08/20 Range/Units 06:14 06:14 RBC 3.49 L (4.30-5.90) m/uL Hgb 11.0 L (13.0-17.5) gm/dL Hct 32.1 L (39.0-53.0) % BUN 6.0 L (9.0-27.0) mg/dL BUN/Creatinine Ratio 8.57 L (12.00-20.00) Ratio Glucose 130 H (70-110) mg/dL Albumin 3.60 L (3.80-4.90) g/dL Albumin/Globulin Ratio 1.16 L (1.60-3.17) g/dL Microbiology - Last 24 Hours (Table) 11/06/20 18:54 Gram Stain - Final Ankle - Left Wound Culture - Final Methicillin resist S. aureus 11/06/20 17:27 Blood Culture - Preliminary Blood No Growth after 24 hours 11/06/20 17:20 Blood Culture - Preliminary Blood No Growth after 24 hours Assessment and Plan Assessment: I discussed the care with Souleymane Nash NP and reviewed the findings and plan as documented in the note above. I did not physically speak with or examine the patient on this date. Infectious disease had recommended possible further I&D of abscess area. Awaiting response from ortho. Wound cultures are susceptible to multiple oral antibiotics, would avoid IV antibiotics if possible on discharge.
[2020-11-08 20:53] VITALS: RESP 16
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
[2020-11-09] MEDS: HYDROcodone/APAP 5-325MG 1 EACH TAB PO PRN ×3 (02:02→12:29)
[2020-11-09] MEDS: VANCOMYCIN 1,500 MG in SODIUM CHLORIDE 0.9% 250 ML IVPB SCH ×2 (02:04→11:20)
[2020-11-09] MEDS: MORPHINE SULFATE 2 MG/ML SYRINGE IVP PRN ×2 (03:45→11:20)
[2020-11-09 05:35] VITALS: BP 185/109; PULSE 55; TEMP 98.3
[2020-11-09] MEDS: IBUPROFEN 400 MG TAB PO PRN (06:48)
[2020-11-09] MEDS: NICOTINE 21MG/24HR PATCH TRANSDERM SCH (08:46)
[2020-11-09] MEDS ORDERED: lisinopriL 20 MG TAB PO SCH (09:00)
[2020-11-09] MEDS ORDERED: VANCOMYCIN TROUGH DUE 1 EACH MISC MISCELLANE ONE (10:00)
--- NOTE | 2020-11-09 12:11 | P.PN ---
Progress Note - Text Progress Note Date: 11/09/20 The patient was discussed with Dr. Luis Nesbitt. Dr. Nesbitt states there is no indication for surgical intervention for the patient's left foot. Recommended local wound care and antibiotics under the discretion of internal medicine and infectious disease. Thank you.
--- NOTE | 2020-11-09 12:38 | P.DS ---
<Souleymane Nash - Last Filed: 11/09/20 12:29> Providers Expected date of discharge: 11/09/20 Hospital Course: Discharge Diagnosis: Cellulitis of left foot Nicotine dependence Polysubstance abuse Hospital Course: Patient is a 35-year-old male with a past medical history of hypertension and opioid dependence. He presented to the hospital with pain and erythema surrounding his left ankle with history of MRSA cellulitis. Patient had I&D completed in the ED. Wound and blood cultures obtained. Pt was placed on IV antibiotics with Vancomycin. Orthopedic surgery and Infectious Disease consulted. Blood cultures showing no growth after 48 hours. Wound cultures resulted positive for methicillin resistant staph aureus. Patient cleared by orthopedic surgery and infectious disease and is medically stable to be discharged home at this time on oral antibiotics. Patient being started on Bactrim 800/160 mg tablets in which she is instructed to take every 12 hours for the next 14 days. Patient was educated on the importance of taking these medications exactly as prescribed and completing entire course of antibiotic therapy. Patient to follow up outpatient with infectious disease and orthopedic surgery as discussed. Patient stable for discharge home at this time. Physical exam: Patient seen and fully evaluated at the bedside this morning. Patient has improvement of erythema and edema of left lateral and dorsal surface of foot. Wound remains open with purulent drainage. Dressing removed and to be replaced.. Patient reports pain controlled at this time. He denies having any numbness/tingling/weakness. Vital signs stable. He denies any other complaints or pains at this time. General: non toxic, no distress, appears at stated age Derm: warm, dry. Extensive scarring to left lower extremity secondary to previous reconstructive surgeries . Patient has improvement of erythema and edema of left lateral and dorsal surface of foot. Wound remains open with purulent drainage. Dressing removed and to be replaced.. Head: atraumatic, normocephalic, symmetric Eyes: EOMI, no lid lag, anicteric sclera Mouth: no lip lesion, mucus membranes moist Cardiovascular: S1S2 reg, no murmur, positive posterior tibial pulse bilaterally, cap refill less than 2 seconds Lungs: CTA bilateral, no rhonchi, no rales , no accessory muscle use Abdominal: soft, nontender to palpation, no guarding, no appreciable organomegaly Ext: no gross muscle atrophy, no edema, no contractures Neuro: CN II-XI grossly intact, no focal neuro deficits Psych: Alert, oriented, appropriate affect A total of 45 minutes of time were spent preparing this complex discharge summary. Patient Condition at Discharge: Good Plan - Discharge Summary Discharge Rx Participant: No New Discharge Prescriptions: New Sulfamethox-Tmp 800-160Mg [Bactrim DS 800-160 mg] 1 tab PO Q12HR 14 Days #14 tab Continue lisinopriL 40 mg PO HS 30 Days #30 tab Discharge Medication List Sulfamethox-Tmp 800-160Mg [Bactrim DS 800-160 mg] 1 tab PO Q12HR 14 Days #14 tab 11/09/20 [Rx] lisinopriL 40 mg PO HS 30 Days #30 tab 11/09/20 [Rx] Follow up Appointment(s)/Referral(s): Luis Nesbitt DO [Doctor of Osteopathic Medicine] - 1 Week (Please call the office and ask for anna to make your appointment.) Rea Richey MD [STAFF PHYSICIAN] - 11/15/20 3:30 pm Taiwo Quintana [STAFF PHYSICIAN] - 1-2 Days Patient Instructions/Handouts: Sulfamethoxazole/Trimethoprim (By mouth), Lisinopril (By mouth), MRSA (Methicillin-Resistant Staphylococcus Aureus) (DC), Wound Infection (DC), Cellulitis (DC), Heart Healthy Diet (DC), Chronic Wounds (DC), Acute Wounds (DC) Activity/Diet/Wound Care/Special Instructions: Activity: As tolerated Diet: Heart healthy diet Wound Care: Keep wound clean and dry follow-up with orthopedics in office as well as Dr. Richey with Infectious Disease. Special Instructions: You are being discharged home on Bactrim 800/160 mg tablets. You will need to take these every 12 hours for the next 14 days. Please complete entire course of antibiotics and take it exactly as directed. Thank you for allowing us to participate in your care! Discharge Disposition: HOME SELF-CARE <Becky Leonard - Last Filed: 11/09/20 22:16> Providers Date of admission: 11/06/20 18:31 Attending physician: Becky Leonard DO Consults: 11/06/20 18:31 Consult Physician Routine Consulting Provider: Luis Nesbitt Consult Reason/Comments: cellulitis, abscess L foot Do you want consulting provider notified?: Yes 11/08/20 11:32 Consult Physician Routine Consulting Provider: Rea Richey Consult Reason/Comments: cellulitis, MRSA possible need for outpatient abx Do you want consulting provider notified?: Yes Primary care physician: Stated None Hospital Course: I discussed the care with Souleymane Nash NP and reviewed the findings and plan as documented in the note above. I did not physically speak with or examine the patient on this date.
--- NOTE | 2020-11-09 15:21 | PN ---
PROGRESS NOTE DATE OF SERVICE: 11/09/2020 REASON FOR FOLLOWUP: Left lateral ankle MRSA abscess and cellulitis. INTERVAL HISTORY: The patient is currently afebrile. The patient mentioned yesterday he did drain out a lot pus from his left lateral ankle area. The patient denies having any chest pain or shortness of breath or cough. No abdominal pain or diarrhea. PHYSICAL EXAMINATION: Blood pressure 185/100, pulse of 55, temperature is 98.3. He is 99% on room air. General description is a middle-aged male lying in bed in no distress. RESPIRATORY SYSTEM: Unlabored breathing, clear to auscultation anteriorly. HEART: S1, S2. Regular rate and rhythm. ABDOMEN: Soft, no tenderness. Left lateral ankle is currently dressed, however, minimal drainage on the dressing. LABS: Hemoglobin is 11, white count 4.4, creatinine 0.7. Cultures with MRSA. Blood culture has been negative. DIAGNOSTIC IMPRESSION AND PLAN: Patient with left lateral ankle abscess and cellulitis with spontaneous drainage. The patient has been insisting on going home, try to arrange for in the outpatient setting, which could not be approved. Antibiotic Bactrim DS one twice a day for 2 weeks and close outpatient followup. Discussed with the primary team who is already working on discharge. MMODL / IJN: [id number] /
[2020-11-09] MEDS ORDERED: NON FORMULARY DRUG (Lisinopril [Lisinopril] 40 MG Tablet) PO SCH (21:00)
== END 2020-11-09 13:32 | disposition home or self-care (01) ==
LOC: EC 16:34 → 5NMEDONC 18:31
PROVIDERS: ADMIT Internal Medicine; ATTEND Internal Medicine
DX: L02.416 Cutaneous abscess of left lower limb (principal); B95.62 Methicillin resistant Staphylococcus aureus infection as the cause of diseases classified elsewhere; L03.116 Cellulitis of left lower limb; I10 Essential (primary) hypertension; D64.9 Anemia, unspecified; F11.20 Opioid dependence, uncomplicated; F14.10 Cocaine abuse, uncomplicated; F15.10 Other stimulant abuse, uncomplicated; F12.10 Cannabis abuse, uncomplicated; R79.82 Elevated C-reactive protein (CRP); G47.30 Sleep apnea, unspecified; F32.9 Major depressive disorder, single episode, unspecified; F41.9 Anxiety disorder, unspecified; F17.200 Nicotine dependence, unspecified, uncomplicated; Z20.822 Contact with and (suspected) exposure to COVID-19; Z99.89 Dependence on other enabling machines and devices; Z86.14 Personal history of Methicillin resistant Staphylococcus aureus infection; Z87.81 Personal history of (healed) traumatic fracture; Z98.890 Other specified postprocedural states
CPT/HCPCS: 96376 ×3; 96361 ×2; 96366 ×5; 96375 ×2; 96368 ×2; 96365; 96367; 99284; 10060; 36415; 80053 ×2; 80048; 83605; 85025 ×3; 80202 ×2; 85610; 85730; 86140; 87040; 80306; 87070; 87205; 87077; 87186; 87635; 73630; G0378 ×4; S4990 ×3; J2543 ×2; J3370 ×4; J2001; J0696; J2270 ×3; J1170

== ENCOUNTER 2021-01-12 08:52 | Emergency (ER) | payer OTHER ==
[2021-01-12 08:58] VITALS: BP 141/105; TEMP 97.9
[2021-01-12] MEDS ORDERED: NALOXONE 0.4 MG/ML 1 ML VIAL IVP STA (09:13)
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
[2021-01-12 09:38] LABS: HCT 36.1 % (39.0-53.0); HGB 11.6 gm/dL (13.0-17.5); MCH 30.9 pg (25.0-35.0); MCHC 32.2 g/dL (31.0-37.0); Mean Platelet Volume 7.7; Platelet Count 277 k/uL (150-450); RBC 3.76 m/uL (4.30-5.90); RDW 13.9 % (11.5-15.5)
[2021-01-12 09:53] LABS: African American GFR (CKD) >90 (>60 ml/min/1.73 sqM); Alcohol <10 mg/dL; Anion Gap 6 mmol/L; Blood Urea Nitrogen 13 mg/dL (9-20); Calcium 9.3 mg/dL (8.4-10.2); Carbon Dioxide 31 mmol/L (22-30); Chloride 103 mmol/L (98-107); Glucose 102 mg/dL (74-99); Non-African American GFR(CKD) >90 (>60 ml/min/1.73 sqM); Potassium 4.5 mmol/L (3.5-5.1); Sodium 140 mmol/L (137-145)
[2021-01-12 10:21] VITALS: PULSE 60; RESP 18
[2021-01-12 13:34] LABS: Band Neutrophils % 1 %; Eosinophils # (M) 0.36 k/uL (0-0.7); Lymphocytes # (M) 2.34 k/uL (1.0-4.8); Monocytes # (M) 0.42 k/uL (0-1.0); Neutrophils % (M) 47 %; Nucleated Red Blood Cells 0 /100 WBC (0-0); Total Cells Counted 100
== END 2021-01-12 12:50 | disposition home or self-care (01) ==
LOC: EC 08:52
DX: T42.4X1A Poisoning by benzodiazepines, accidental (unintentional), initial encounter (principal); T40.1X1A Poisoning by heroin, accidental (unintentional), initial encounter; I10 Essential (primary) hypertension; F17.200 Nicotine dependence, unspecified, uncomplicated
CPT/HCPCS: 80048; 85025; 99284; 96374; G0480; J2310; 80320

== ENCOUNTER 2022-01-19 16:00 | Emergency (ER) | payer OTHER ==
[2022-01-19 16:12] VITALS: BP 152/99; PULSE 52; RESP 18; TEMP 98
--- NOTE | 2022-01-19 17:02 | ED ---
ENT HPI - General Chief complaint: Dental/Oral Stated complaint: dental - needs antibiotic Time Seen by Provider: 01/19/22 16:51 Source: patient, RN notes reviewed Mode of arrival: ambulatory Limitations: no limitations - History of Present Illness Initial comments: This is a 36-year-old cigarette smoker who presents to the emergency department complaining of dental pain which is been going on for quite some time. Patient describing increasing pain to the lower left molars. Patient unable to get in with the dentist. Patient has had recurrent infections of the dental area. No difficulty with swallowing. No sore throat. It hold down fluids. No appetite change. No fever or chills. No headache, no fever or chills, no changes in vision or hearing, no sore throat or difficulty with speech, no neck pain, no chest pain or shortness of breath, no abdominal pain, no nausea or vomiting, no changes in urination or bowel mo vements, no numbness or tingling, no extremity pain, no skin rashes or lesions. Past medical, surgical, social, and family history reviewed. - Related Data Previous Rx's Medication Instructions Recorded lisinopriL 40 mg PO HS 30 Days #30 tab 11/09/20 Acetaminophen Tab [Tylenol Tab] 500 mg PO Q6H PRN #24 tablet 01/19/22 Ibuprofen [Motrin] 600 mg PO Q8HR PRN #30 tab 01/19/22 Penicillin V Potassium [Pen Vee K] 500 mg PO QID #40 tablet 01/19/22 Allergies Allergy/AdvReac Type Severity Reaction Status Date / Time No Known Allergies Allergy Verified 01/19/22 16:12 Review of Systems ROS Statement: Those systems with pertinent positive or pertinent negative responses have been documented in the HPI. ROS Other: All systems not noted in ROS Statement are negative. Past Medical History Past Medical History: Hypertension, Sleep Apnea/CPAP/BIPAP Additional Past Medical History / Comment(s): addiction History of Any Multi-Drug Resistant Organisms: MRSA Date of last positivie culture/infection: 11/06/20 MDRO Source:: ANKLE Past Surgical History: Hernia Repair, Orthopedic Surgery Additional Past Surgical History / Comment(s): Left leg sx numerous r shoulder, Past Anesthesia/Blood Transfusion Reactions: No Reported Reaction Past Psychological History: Anxiety, Depression Smoking Status: Current every day smoker, Vaper Past Alcohol Use History: Occasional Past Drug Use History: Heroin, Marijuana, Opiates, Prescription Drug Abuse - Past Family History FAMILY Family Medical History: No Reported History General Exam - General Exam Comments Initial Comments: Nontoxic appearing male in no significant distress. Found to be hypertensive. Does not appear to be dehydrated. Adequate peripheral profusion. Moist mucous membranes. Normal capillary refill Limitations: no limitations General appearance: alert, in no apparent distress Head exam: Present: atraumatic, normocephalic, normal inspection Eye exam: Present: normal appearance, PERRL, EOMI. Absent: scleral icterus, conjunctival injection, periorbital swelling ENT exam: Present: normal exam, mucous membranes moist, TM's normal bilaterally, normal external ear exam. Absent: mucous membranes dry Expanded Ear exam: Present: normal external inspection Mouth exam: Present: normal external inspection. Absent: drooling, trismus, muffled voice, tongue normal, tongue elevation, laceration Teeth exam: Present: dental caries, dental tenderness # (Adjacent to lower left molars with notable dental caries into the pulp, no evidence of dental abscess), gingival enlargement (Left lower molar area, minimal erythema). Absent: fractured tooth # Throat exam: normal inspection. negative: tonsillar erythema, tonsillomegaly, tonsillar exudate, R peritonsillar mass, L peritonsillar mass Neck exam: Present: normal inspection. Absent: tenderness, meningismus, lymphadenopathy Respiratory exam: Present: normal lung sounds bilaterally. Absent: respiratory distress, wheezes, rales, rhonchi, stridor Cardiovascular Exam: Present: regular rate, normal rhythm, normal heart sounds. Absent: systolic murmur, diastolic murmur, rubs, gallop, clicks GI/Abdominal exam: Present: soft, normal bowel sounds. Absent: distended, tenderness, guarding, rebound, rigid Extremities exam: Present: normal inspection, full ROM, normal capillary refill. Absent: tenderness, pedal edema, joint swelling, calf tenderness Back exam: Present: normal inspection Neurological exam: Present: alert, oriented X3, CN II-XII intact Psychiatric exam: Present: normal affect, normal mood Skin exam: Present: warm, dry, intact, normal color. Absent: rash Course Vital Signs 01/19/22 16:07 Temperature 98.0 F Pulse Rate 52 L Respiratory 18 Rate Blood Pressure 152/99 O2 Sat by Pulse 97 Oximetry Procedures - Smoking Cessation Time Spent Discussing Smoking Cessation w/Patient (Minutes): 3 Patient Acknowledges Need for Cessation: Yes Medical Decision Making - Medical Decision Making Patient Smoking Cessation. Counseled on Dental Care. He Will Use Penicillin VK, Ibuprofen, and Acetaminophen. Patient Told to Follow-Up with Dentist As Soon As Possible. Patient was told to return to the ER for any signs or symptoms worsen. Told to return immediately if any other problems arise. All questions answered. Treatment plan discussed. Patient in agreement Every effort has been made to ensure accuracy of this dictation. However, due to the limitations of electronic medical records and dictation devices, errors in charting still occur. [employer] Dr. Espino Disposition Clinical Impression: Dental caries into pulp, Odontalgia, Cigarette smoker, Elevated blood pressure reading Disposition: HOME SELF-CARE Condition: Good Instructions (If sedation given, give patient instructions): How to Stop Smoking (ED), Hypotension (ED), Toothache (ED) Additional Instructions: Follow-up with a dentist as soon as possible. Follow-up with your regular physician as directed. Return to the ER immediately if any symptoms worsen, new symptoms arise, or any other problems develop. Prescriptions: Ibuprofen [Motrin] 600 mg PO Q8HR PRN #30 tab PRN Reason: Pain Penicillin V Potassium [Pen Vee K] 500 mg PO QID #40 tablet Acetaminophen Tab [Tylenol Tab] 500 mg PO Q6H PRN #24 tablet PRN Reason: Pain Is patient prescribed a controlled substance at d/c from ED?: No Referrals: Taiwo Quintana [STAFF PHYSICIAN] - 01/25/22 Time of Disposition: 17:01
== END 2022-01-19 17:12 | disposition home or self-care (01) ==
LOC: EC 16:00
DX: K02.9 Dental caries, unspecified (principal); K08.89 Other specified disorders of teeth and supporting structures; I10 Essential (primary) hypertension; F17.209 Nicotine dependence, unspecified, with unspecified nicotine-induced disorders
CPT/HCPCS: 99282

== ENCOUNTER 2022-05-17 07:48 | Emergency (ER) | payer OTHER ==
[2022-05-17 08:05] VITALS: RESP 18
[2022-05-17] MEDS ORDERED: PENICILLIN V POTASSIUM 250 MG TAB PO STA (08:24)
[2022-05-17] MEDS ORDERED: KETOROLAC 15 MG/ML 1 ML VIAL IM STA (08:24)
[2022-05-17] MEDS ORDERED: cloNIDine HCL 0.1 MG TAB PO STA ×2 (08:24→09:47)
--- NOTE | 2022-05-17 09:08 | ED ---
ENT HPI - General Chief complaint: Dental/Oral Stated complaint: Dental Pain Time Seen by Provider: 05/17/22 08:06 Source: patient, RN notes reviewed Mode of arrival: ambulatory Limitations: no limitations - History of Present Illness Initial comments: This is a 36-year-old male who presents to the emergency department for dental pain. States that he has multiple chipped teeth and is having pain on the left lower side of his jaw. Symptoms have been present for 2-3 days. Denies any fevers. He does not currently have a dentist. Denies any fevers, chills, sore throat, cough, dyspnea, chest pain, palpitations, abdominal pain, nausea, vomiting, diarrhea, back pain, or headaches. MD complaint: tooth pain Onset/Timin -: days(s) - Related Data Previous Rx's Medication Instructions Recorded lisinopriL 40 mg PO HS 30 Days #30 tab 11/09/20 Acetaminophen Tab [Tylenol Tab] 500 mg PO Q6H PRN #24 tablet 01/19/22 Ibuprofen [Motrin] 600 mg PO Q8HR PRN #30 tab 01/19/22 Penicillin V Potassium [Pen Vee K] 500 mg PO QID #40 tablet 01/19/22 Ketorolac [Toradol] 10 mg PO Q6HR PRN 5 Days #20 tab 05/17/22 Penicillin V Potassium [Pen Vee K] 500 mg PO QID 10 Days #40 tablet 05/17/22 Allergies Allergy/AdvReac Type Severity Reaction Status Date / Time No Known Allergies Allergy Verified 05/17/22 08:05 Review of Systems ROS Statement: Those systems with pertinent positive or pertinent negative responses have been documented in the HPI. ROS Other: All systems not noted in ROS Statement are negative. Past Medical History Past Medical History: Hypertension, Sleep Apnea/CPAP/BIPAP Additional Past Medical History / Comment(s): addiction History of Any Multi-Drug Resistant Organisms: MRSA Date of last positivie culture/infection: 11/06/20 MDRO Source:: ANKLE Past Surgical History: Hernia Repair, Orthopedic Surgery Additional Past Surgical History / Comment(s): Left leg sx numerous r shoulder, Past Anesthesia/Blood Transfusion Reactions: No Reported Reaction Past Psychological History: Anxiety, Depression Smoking Status: Current every day smoker, Vaper Past Alcohol Use History: Occasional Past Drug Use History: Heroin, Marijuana, Opiates, Prescription Drug Abuse - Past Family History FAMILY Family Medical History: No Reported History General Exam Limitations: no limitations General appearance: alert, in no apparent distress Head exam: Present: atraumatic, normocephalic, normal inspection Expanded Teeth exam: Present: dental caries, other (Multiple fractured teeth, particularly on the left lower side of the jaw.) Respiratory exam: Present: normal lung sounds bilaterally. Absent: respiratory distress, wheezes, rales, rhonchi, stridor Cardiovascular Exam: Present: regular rate, normal rhythm, normal heart sounds. Absent: systolic murmur, diastolic murmur, rubs, gallop, clicks Neurological exam: Present: alert, oriented X3, CN II-XII intact Psychiatric exam: Present: normal affect, normal mood Skin exam: Present: warm, dry, intact, normal color. Absent: rash Course Vital Signs 05/17/22 05/17/22 05/17/22 08:03 08:32 09:44 Temperature 97.9 F Pulse Rate 53 L 57 L 59 L Respiratory 18 18 18 Rate Blood Pressure 211/121 179/126 172/113 O2 Sat by Pulse 100 98 100 Oximetry 05/17/22 05/17/22 11:02 12:30 Temperature 98.2 F Pulse Rate 70 72 Respiratory 18 18 Rate Blood Pressure 157/106 142/104 O2 Sat by Pulse 98 96 Oximetry Medical Decision Making - Medical Decision Making This is a 36-year-old male who presents to the emergency department for dental pain. Patient has very poor dental hygiene with multiple dental caries and chipped teeth. He does have some mild swelling to the left cheek concerning for a developing dental abscess. Prescription for Pen-Vee K provided with the first dose administered in the emergency department. He was also given Toradol for his pain. His blood pressure was markedly elevated on arrival and he was subsequently given 2 doses of clonidine which improved his blood pressure. Starter packs for Pen-Vee K and ibuprofen were provided. He was also given a prescription for Toradol, I advised that if he chooses to take this he should avoid ibuprofen or other [id number] anti-inflammatories. Instructed him to follow-up with a dentist as soon as possible for definitive management. Oral hygiene was also reviewed with the patient and encouraged. Return precautions reviewed in depth, the patient is instructed to return to the emergency department with any new, worsening, or concerning symptoms. Patient verbalized understanding. This case was discussed in detail with the attending ED physician. Presentation, findings, and treatment plan discussed in detail as well. Disposition Clinical Impression: Pain, dental Disposition: HOME SELF-CARE Instructions (If sedation given, give patient instructions): Toothache (ED), Mouth Care (ED) Additional Instructions: Return to the emergency department with any new, worsening, or concerning symptoms. Take the antibiotic as prescribed for 10 days. You can take the Toradol with Tylenol for pain, if you choose to take Toradol do not take [id number]-qrg-wjxfsbr anti-inflammatories such as ibuprofen. You can apply warm compresses to the side of the face. Make sure that you are practicing good oral hygiene and become established with a local dentist and follow-up as soon as possible for definitive management. Follow up with your primary care provider in 1-2 days. Prescriptions: Penicillin V Potassium [Pen Vee K] 500 mg PO QID 10 Days #40 tablet Ketorolac [Toradol] 10 mg PO Q6HR PRN 5 Days #20 tab PRN Reason: Pain Is patient prescribed a controlled substance at d/c from ED?: No Referrals: None,Stated [Primary Care Provider] - 1-2 days
[2022-05-17] MEDS ORDERED: IBUPROFEN 600 MG STARTER PACK 4 TAB BTL PO STA (11:12)
[2022-05-17] MEDS ORDERED: PENICILLIN VK 500MG STARTER 4 TAB BTL PO STA (11:12)
[2022-05-17 12:32] VITALS: BP 142/104; PULSE 72; TEMP 98.2
== END 2022-05-17 12:32 | disposition home or self-care (01) ==
LOC: EC 07:48
DX: K08.89 Other specified disorders of teeth and supporting structures (principal); I10 Essential (primary) hypertension; F17.200 Nicotine dependence, unspecified, uncomplicated; F41.9 Anxiety disorder, unspecified; F32.A Depression, unspecified; F12.90 Cannabis use, unspecified, uncomplicated
CPT/HCPCS: 99283; 96372; J1885

== ENCOUNTER → 2024-04-30 | Outpatient (CLI) | payer OTHER ==
--- NOTE | 2024-05-04 14:02 | US ---
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 FINDINGS: EXAM MEASUREMENTS: Liver Length: 14.9 cm Gallbladder Wall: 0.3 cm CBD: 0.5 cm Right Kidney: 11.4x5.3x6.8 cm Pancreas: Tail obscured by overlying bowel gas Liver: wnl . On initial images there was an echogenic rim area within the right lobe liver felt to r epresent impression from the adjacent kidney. Repeat images performed 05/04/2024. This was demonstrat ed to be artifact from the renal impression. No suspicious hepatic mass is identified. Gallbladder: wnl Evidence for sonographic Hartman's sign: No CBD: wnl Right Kidney: On the initial images there is some rounded fullness to the mid upper pole right kidne y. This patient has some impression on the adjacent medullary kidney. This is not typical for a colum n of Patric. Patient was recalled for additional imaging. Additional imaging this area appears isoech oic with the adjacent kidney but does appear to have some impression on the adjacent renal pelvis. Th ere is some central hypointensity. No corresponding abnormality on the 02/17/2020 CT is evident. Addit ional workup with MRI is recommended to evaluate for possible underlying mass. IMPRESSION: Some fullness in the mid upper pole right renal cortex. Contrast MRI is recommended for closer evalua tion. [facility], , 05/04/2024 2:00 PM
== END | disposition home or self-care (01) ==
LOC: RADUSWWP 08:05
PROVIDERS: ATTEND Internal Medicine Gastroenterology
DX: B18.2 Chronic viral hepatitis C (principal)
CPT/HCPCS: 76705

== ENCOUNTER → 2024-05-04 | Outpatient (CLI) | payer OTHER ==
[2024-05-04 15:48] LABS: ALT 133 U/L (10-49); AST 64 U/L (14-35); Albumin 4.5 g/dL (3.8-4.9); Albumin/Globulin Ratio 1.45 Ratio (1.60-3.17); Alkaline Phosphatase 48 U/L (41-126); BUN/Creat Ratio 22.38 Ratio (12.00-20.00); Blood Urea Nitrogen 17.9 mg/dL (9.0-27.0); Calcium 9.8 mg/dL (8.7-10.3); Carbon Dioxide 27.1 mmol/L (21.6-31.8); Chloride 101 mmol/L (96-109); Globulin 3.1 g/dL (1.6-3.3); Glucose 126 mg/dL (70-110); Potassium 3.8 mmol/L (3.5-5.5); Sodium 139 mmol/L (135-145); Total Bilirubin 0.3 mg/dL (0.3-1.2); Total Protein 7.6 g/dL (6.2-8.2)
[2024-05-04 15:49] LABS: Basophils # (A) 0.04 X 10*3/uL (0.00-0.10); Basophils % (A) 0.7 %; Eosinophils # (A) 0.14 X 10*3/uL (0.04-0.35); Eosinophils % (A) 2.4 %; HCT 42.6 % (39.6-50.0); HGB 14.3 g/dL (13.0-17.0); Lymphocytes # (A) 2.29 X 10*3/uL (0.90-5.00); MCH 32.2 pg (27.0-32.0); MCHC 33.6 g/dL (32.0-37.0); MCV 95.9 FL (80.0-97.0); Mean Platelet Volume 11.3 FL (9.5-12.2); Monocytes # (A) 0.65 X 10*3/uL (0.20-1.00); Monocytes % (A) 11.1 %; NRBC Per 100 WBC 0 X 10*3/uL (0.00-0.01); Neutrophils # (A) 2.74 X 10*3/uL (1.80-7.70); Neutrophils % (A) 46.6 %; Platelet Count 269 X 10*3/uL (140-440); RBC 4.44 X 10*6/uL (4.40-5.60); RDW 13.1 % (11.5-14.5); WBC 5.87 X 10*3/uL (4.50-10.00)
== END | disposition home or self-care (01) ==
LOC: LABWHC1 09:01
PROVIDERS: ATTEND Internal Medicine Gastroenterology
DX: B18.2 Chronic viral hepatitis C (principal); R11.2 Nausea with vomiting, unspecified
CPT/HCPCS: 36415; 80053; 81596; 82105; 83516; 85025; 87522

== ENCOUNTER → 2024-06-26 | Outpatient (CLI) | payer OTHER ==
--- NOTE | 2024-06-27 08:38 | MR ---
EXAMINATION TYPE: MR kidney wo/w con DATE OF EXAM: 06/26/2024 9:14 PM COMPARISON: CT abdomen and pelvis January 28, 2020 . Liver ultrasound April 30, 2024 CLINICAL INDICATION: Male, 38 years old with history of N28.89 OTHER SPECIFIED DISORDERS OF KIDNEY R9 3.421, abnormal US, possible right kidney mass IV Contrast: 7 cc Gadobutrol (None if empty) CONTRAST: Standard multiplanar, multisequence MRI departmental protocol images were obtained without contrast a nd with 7 mL intravenous Gadobutrol gadolinium contrast. FINDINGS: Kidneys: Kidneys are symmetric and normal in size without concerning solid or cystic renal mass is se en bilaterally. There is incidental 5 mm simple thin-walled cyst posterior upper pole right kidney se en on series 601 image 41. There is incidental 3 mm simple thin-walled cyst in the mid right kidney a xial image 31. Other: Liver appears within normal limits. Spleen and pancreas are grossly unremarkable. No adrenal m asses. Patient has little internal fat. No abnormal small or large bowel dilatation. No biliary dilat ation. No free fluid in the abdomen. Osseous structures are intact. No AAA is noted. No suspicious en hancement is seen. IMPRESSION: No concerning solid renal mass. [facility], , 06/27/2024 8:36 AM
== END | disposition home or self-care (01) ==
LOC: RADMRIMAIN 20:30
PROVIDERS: ATTEND Family Medicine
DX: N28.89 Other specified disorders of kidney and ureter (principal); R93.421 Abnormal radiologic findings on diagnostic imaging of right kidney
CPT/HCPCS: 74183; A9585